=== PATIENT | female | born 1955 | race Caucasian/White ===

== ENCOUNTER 2017-03-23 14:43 | Inpatient (IN) | payer OTHER ==
[~2017-03-23] VITALS: Ht 147.3 cm; Wt 70.9 kg
--- NOTE | 2017-03-23 15:28 | DIAGNOSTIC IMAGING REPORT ---
PROCEDURE: XR CHEST 1 VIEW INDICATION: SHORTNESS OF BREATH TECHNIQUE: Portable AP view 03:08 p.m. COMPARISON: None. FINDINGS: Moderate right basilar infiltrate. Left lung is clear. Heart and mediastinum are normal. Thorax is normal. IMPRESSION: 1. Right basilar infiltrate suggestive of pneumonia. Recommend follow-up chest x-ray in 3-4 weeks which to confirm resolution.
--- NOTE | 2017-03-23 18:40 | DIAGNOSTIC IMAGING REPORT ---
PROCEDURE: CTA THORAX WITH CONTRAST INDICATION: SHORTNESS OF BREATH TECHNIQUE: 76 ml of Isovue 370 was injected intravenously and axial images were obtained of the chest with 3D sagittal and coronal MIP reconstructions. COMPARISON: Chest x-ray Performed the same day. FINDINGS: Normal opacification of the pulmonary arterial tree without filling defect. The central pulmonary arteries are normal caliber. Thoracic aorta is normal caliber with mild aortic arch calcification. There is moderate noncalcified atherosclerotic irregularity of the distal descending and proximal abdominal aorta. The great vessels demonstrate a normal branching pattern. Heart size mildly enlarged, particularly the left atrium. No pericardial effusion. Multiple small lymph nodes in the right supraclavicular region, high paratracheal region, lower paratracheal and precarinal regions, subcarinal regions, and right hilar region diffusely. Small AP window lymph node. No left hilar adenopathy. The esophagus is normal in caliber without hiatal hernia. The thyroid gland demonstrates mild irregularity in the right lobe and of focal cystic structure in the left lobe. 8 x 5 mm solid soft tissue nodule in the anterior right upper lobe (series 5 image 41) as well as mild right upper lobe lateral bronchiectasis and interstitial scarring. Dense consolidation involving the lower aspect of the right lower lobe, and the inferolateral aspect of the right middle lobe with associated right hemithorax volume loss. There is a very small right effusion. Minor dependent left atelectasis and trace left effusion. The left lung is otherwise clear. Small airways in the right lower lobe are still patent but moderately diminutive through the consolidation. No endobronchial nodule. The osseous structures are intact. The images obtained of the upper abdomen demonstrate multiple cortical cysts in each kidney and moderate retained stool in the colon. IMPRESSION: 1. No pulmonary embolus. 2. Fairly extensive right lower lobe and right middle lobe consolidations. Differential diagnosis includes infectious pneumonia, postobstructive pneumonia, less likely aspiration. Neoplasm is not excluded. Follow-up chest x-ray following treatment in 3-[address] may be required if findings persist. 3. There is fairly extensive reactive adenopathy from the hilar and subcarinal regions to the supraclavicular region. 4. Mild cardiomegaly. 5. 8 mm anterior right upper lobe lung nodule, possibly post infectious. Follow-up chest CT in 3 months recommended. 6. Discussed with Dr. Durant in the emergency room.
--- NOTE | 2017-03-23 18:58 | ED ORDER SUMMARY ---
..... Patient: TOMAS MONTES DE OCA OrderSheet [facility] VisitID: [id number] [address] [place] [address] 62y, F Registration Date/Time: 03/23/2017 ORDER SHEET Weight: 68.0 kg (stated) Allergies: No Known Drug Allergy GENERAL ORDERS: Chest 1V Urgent (14:50 03/23/2017 Kelly YUSUF) (Ack 15:30 Melissa) (15:51 SRoberts R.N.) (15:53 MCampbell) Waiter/Waitress Captain (Continuous) (14:55 03/23/2017 Kelly YUSUF) (15:29 SRoberts R.N.) CBC w Diff Urgent (14:55 03/23/2017 Kelly YUSUF) (Ack 15:30 Melissa) (15:51 SRoberts R.N.) CMP Urgent (14:55 03/23/2017 Kelly YUSUF) (Ack 15:30 Melissa) (15:51 SRoberts R.N.) UA-Culture if indicated Urgent (14:55 03/23/2017 Kelly YUSUF) (Ack 15:30 Melissa) (15:51 SRoberts R.N.) PT with INR Urgent (14:55 03/23/2017 Kelly YUSUF) (Ack 15:30 Melissa) (15:51 SRoberts R.N.) PTT Urgent (14:55 03/23/2017 Kelly YUSUF) (Ack 15:30 Melissa) (15:51 SRoberts R.N.) D-Dimer Urgent (14:55 03/23/2017 Kelly YUSUF) (Ack 15:30 Melissa) (15:51 SRoberts R.N.) Amylase Urgent (14:55 03/23/2017 Kelly YUSUF) (Ack 15:30 Melissa) (15:51 SRoberts R.N.) Lipase Urgent (14:55 03/23/2017 Kelly YUSUF) (Ack 15:30 Melissa) (15:51 SRoberts R.N.) CPK Urgent (14:55 03/23/2017 Kelly YUSUF) (Ack 15:30 Melissa) (15:51 SRoberts R.N.) Troponin-I Urgent (14:55 03/23/2017 Kelly YUSUF) (Ack 15:30 Melissa) (15:51 SRoberts R.N.) PCT (Procalcitonin) Urgent (14:55 03/23/2017 Kelly YUSUF) (Ack 15:30 Melissa) (15:51 SRoberts R.N.) BNP Urgent (14:55 03/23/2017 Kelly YUSUF) (Ack 15:30 Melissa) (15:51 SRoberts R.N.) Oxygen (2 L/min) (NC) (14:55 03/23/2017 Kelly YUSUF) (15:29 SRoberts R.N.) Pulse oximeter (14:55 03/23/2017 Kelly YUSUF) (15:29 Sulma R.N.) EKG - ER Stat (14:55 03/23/2017 Kelly YUSUF) (15:30 Melissa) Old Records ([place]) (15:53 03/23/2017 Kelly YUSUF) (16:10 Melissa) CTA Thorax w Cont (No) (see report) (Dr. Rowell aware of BUN / Cr) Urgent (17:09 03/23/2017 Kelly YUSUF) (Ack 18:11 Melissa) (18:47 SRoberts R.N.) Blood Culture (No) (N/A) Urgent (18:40 03/23/2017 Kelly YUSUF) (Ack 18:48 Melissa) (20:53 SRoberts R.N.) MEDICATION ORDERS: DuoNeb Neb Tx 1 unit dose (NOW) (15:51 03/23/2017 Kelly YUSUF) (16:34 Cjglmarie) IV FLUIDS: IV Saline Lock (14:55 03/23/2017 Kelly YUSUF) (Ack 15:29 SRoberts R.N.) (15:51 SRoberts R.N.) Solu-MEDROL IV 125 mg (NOW) (15:51 03/23/2017 Kelly YUSUF) (16:05 SRoberts R.N.) IV NS with Normal Saline 1 Liter: initial bolus none -, then 1000 mL/hr for X1 (NOW) (15:58 03/23/2017 Sulma R.N. verbal order read back to Kelly YUSUF) (16:05 Sulma R.N.) Ceftriaxone IV 2 gm/50mL (NOW) (18:42 03/23/2017 Kelly YUSUF) (19:11 Sulma R.N.) Zithromax IV 500 mg/250 mL (NOW) (18:42 03/23/2017 Kelly YUSUF) (20:20 Sulma R.N.) Clindamycin IV 900 mg/50mL (NOW) (18:43 03/23/2017 Kelly YUSUF) (19:52 Sulma R.N.) ORDER SHEET NOTES: [Electronically signed by Juan Durant MD (20:40 03/23/2017)] [Electronically signed by Fiordaliza Shea R.N. (20:53 03/23/2017)] [Electronically locked/signed by Fiordaliaz Shea R.N. (20:53 03/23/2017)]
--- NOTE | 2017-03-23 18:58 | ED NURSING NOTES ---
Clinical Report - Nurses [place] [address] [place] [address] 03/23/2017 14:48 Patient: TOMAS MONTES DE OCA TRIAGE Triage time 15:03. Acuity: LEVEL 3. Chief Complaint: SHORTNESS OF BREATH and DIFFICULTY BREATHING and COUGH and BACK PAIN (Rt side of the chest pain, Hx of pneumonia, inpatient [facility].). Alert. No acute distress. SEPSIS SCREEN: Sepsis Screen: negative. Negative (no infection suspected/documented). SULLY COMA SCORE: Sully Coma Scale: 15- eyes open spontaneously (4); best verbal response- oriented x 4 (5); best motor response- obeys commands (6). --15:21 Fiordaliza Shea R.N. 15:03 03/23/17. BP: 147/102. HR: 94. RR: 22. O2 saturation: 94% on room air. Temp: 98.7 F. --15:21 Fiordaliza Shea R.N. 15:03 03/23/17. BP: 147/102. HR: 94. RR: 22. O2 saturation: 94% on room air. Temp: 98.7 F. --15:21 Fiordaliza Shea R.N. Weight: 68 kg stated. Height/Length: 59 inches Per Patient. BMI: 30.3. --15:02 Fiordaliza Shea R.N. Medications Zofran Oral 4 mg, PRN. --15:06 Fiordaliza Shea R.N. Imitrex 1 tab at onset o lozano and 1 in 2 hrs prn. . --15:07 Fiordaliza Shea R.N. TiZANidine HCl Oral 8mg a day . --15:08 Fiordaliza Shea R.N. Verapamil HCl Oral SR 180 mg, at bedtime. --15:08 Fiordaliza Shea R.N. FLUoxetine HCl Oral 40 mg, daily. --15:09 Fiordaliza Shea R.N. AmLODIPine Besylate Oral 10 mg, daily. --15:10 Fiordaliza Shea R.N. Carvedilol 6.25mg BID. --15:12 Fiordaliza Shea R.N. Doxazosin Mesylate Oral (Tablet 1 mg) 1 tablet, hs . --15:16 Fiordaliza Shea R.N. Rosuvastatin Calcium Oral 40 mg, at bedtime. --15:16 Fiordaliza Shea R.N. Allergies No Known Drug Allergy. --15:17 Fiordaliza Shea R.N. Medication/allergy information source: the patient. --15:21 Fiordaliza Shea R.N. History Arrived by private vehicle. Historian: patient and family. Accompanied by family. Primary physician ([facility]). The patient has had a cough and back pain. Treatment SCHOOL NURSE: None. PAST MEDICAL HX: Immunizations: status is unknown. The patient has had a hysterectomy. SOCIAL HX: Smoker- current status unknown. No alcohol use or drug use. FALL RISK ASSESSMENT: Fall risk assessment completed. No fall risk identified. NUTRITIONAL RISK ASSESSMENT: The nutritional risk assessment revealed no deficiencies. FUNCTIONAL ASSESSMENT: Functional assessment: no impairments noted. LEARNING NEEDS ASSESSMENT: The learning needs assessment revealed no barriers. SKIN INTEGRITY ASSESSMENT: Skin integrity risk assessment completed. No skin integrity risk identified. --15:21 Fiordaliza Shea R.N. PROBLEMS: Pneumonia. Heart Disease. Back Pain. --15:20 Fiordaliza Shea R.N. ADDITIONAL SURGERIES: Appendectomy. . Hysterectomy. Tonsillectomy. --15:20 Fiordaliza Shea R.N. Interventions ID band on patient. To room. --15:21 Fiordaliza Shea R.N. PHYSICAL ASSESSMENT To room via wheelchair. Patient gowned. GENERAL / NEURO / PSYCH: Alert. Oriented X 4. Appears in no acute distress. Appears anxious. HEENT: Mucous membranes are pink. RESPIRATORY: Moderate respiratory distress. The patient can speak in full sentences. CVS: Capillary refill less than 2 seconds. GI / : Abdomen nontender. SKIN: Skin is warm and dry. Normal skin turgor. --15:22 Fiordaliza Shea R.N. NURSING PROGRESS NOTES ( Chest xray done in the room.). --15:17 Fiordaliza Shea R.N. Pulse oximeter and NIBP monitor placed on patient; monitor alarms on. Patient gowned. Head of bed elevated. Two patient identifiers checked. Call light placed in reach. Side rails up x 2. Patient placed in chair. Brakes of chair on. Patient ready for evaluation. --15:22 Fiordaliza Shea R.N. 15:22 03/23/17. BP: 118/76. HR: 83. RR: 20. O2 saturation: 94% on room air. Pain level now: 08/28. Additional comments: last pain med at 10am. --15:23 Fiordaliza Shea R.N. 15:30 03/23/2017 Site #1 started via IV in the left wrist with an 22g angiocath, with aseptic technique and good blood return; one attempt. Blood drawn: rainbow set. Labeled in the presence of the patient and sent to the lab. Saline lock flushed with 10 mL saline. --15:51 Fiordaliza Shea R.N. 16:05 03/23/2017 SOLU-MEDROL (MethylPREDNISolone Sodium Succ) IVP 125 mg given over 1 minute(s) via site #1. Allergies verified and confirmed 5 rights. IV patency established. IV site checked: no pain, redness, or swelling. IV flushed thoroughly pre- and post-medication administration. IVP given by RN. --16:05 Fiordaliza Shea R.N. 16:03/23/2017 Started bag #1 1000 mL IV Fluids IV NS (Saline); at 1000 mL/hr via site #1. Allergies verified and confirmed 5 rights. IV patency established. IV site checked: no pain, redness, or swelling. IV flushed thoroughly pre- and post-medication administration. --16:05 Fiordaliza Shea R.N. 16:25 03/23/2017 Site #2 started via IV in the right forearm with an 20g angiocath, with aseptic technique and good blood return; two attempts. Saline lock flushed with 10 mL saline (for CT dye). --16:25 Yudith Juárez R.N. 16:34 03/23/2017 Duoneb (Ipratropium-Albuterol) Neb TX Nebulizer 1 unit dose given. Given by the respiratory therapist. Allergies verified and confirmed 5 rights. Ronald Lerma --16:34 Ronald Lerma 16:35 03/23/17. BP: 122/87 taken on the left arm, while sitting. HR: 84. RR: 18. O2 saturation: 96% on nasal cannula at 2 liters/minute. --16:46 Fiordaliza Shea R.N. ( RT did neb treatment in the room..). --16:46 Fiordaliza Shea R.N. EKG time: (15:10). EKG was performed by a tech and shown to the ED physician. --16:59 Aleisha Woodard 17:45 03/23/2017 Site #3 started via IV in the left antecubital space with an 18g angiocath; two attempts. Saline lock flushed with 10 mL saline. --17:45 Mimi Wall R.N. Patient returned from CT by stretcher with tech. --18:13 Fiordaliza Shea R.N. 18:15 03/23/17. BP: 122/69. HR: 74. RR: 18. O2 saturation: 96% on nasal cannula at 2 liters/minute. 17:34 03/23/17. BP: 136/77. HR: 87. RR: 18. O2 saturation: 97% on nasal cannula at 2 liters/minute. --18:16 Fiordaliza Shea R.N. 19:05. ( 2nd set blood cultures done. Antibiotics started.). --19:10 Fiordaliza Shea R.N. 17:30 03/23/2017 IV Fluids IV NS Discontinued: bag #1 infused. Total amount infused: 1000 mL. IV patency established. IV site checked: no pain, redness, or swelling. IV flushed thoroughly. --19:11 Fiordaliza Shea R.N. 19:11 03/23/2017 Started 2 gm of Ceftriaxone IVPB in bag #1 50 mL; at 150 mL/hr over 20 minute(s) via site #1 --19:11 Fiordaliza Shea R.N. 19:52 03/23/2017 Started 900 mg of Clindamycin IVPB in bag #1 50 mL; at 150 mL/hr over 20 minute(s) via site #1 via IV pump. Allergies verified and confirmed 5 rights. IV patency established. IV site checked: no pain, redness, or swelling. IV flushed thoroughly pre- and post-medication administration. --19:52 Fiordaliza Shea R.N. 19:52 03/23/2017 Ceftriaxone IVPB Discontinued: bag #1 infused. Total amount infused: 50 mL. IV patency established. IV site checked: no pain, redness, or swelling. IV flushed thoroughly. --19:52 Fiordaliza Shea R.N. ( Dr Perez at the bedside.). --19:53 Fiordaliza Shea R.N. 20:19 03/23/2017 Clindamycin IVPB Discontinued: bag #1 infused. Total amount infused: 50 mL. IV patency established. IV site checked: no pain, redness, or swelling. IV flushed thoroughly. --20:19 Fiordaliza Shea R.N. 20:20 03/23/2017 Started 500 mg of Zithromax (Azithromycin) IVPB in bag #1 250 mL; at 255 mL/hr over 1 hour(s) via site #1 via IV pump. Allergies verified and confirmed 5 rights. IV patency established. IV site checked: no pain, redness, or swelling. IV flushed thoroughly pre- and post-medication administration. --20:20 Fiordaliza Shea R.N. 20:20 03/23/2017 Site #[address] upon admission; patent, no pain and no signs of infiltration. Flushed with 10 mL saline. --20:20 Fiordaliza Shea R.N. 20:21 03/23/2017 Site #[address] upon admission; patent and no pain. Good blood return present. Flushed with 10 mL saline. --20:21 Fiordaliza Shea R.N. 20:21 03/23/2017 Site #[address] upon admission; patent and no pain. Good blood return present; flushes easily. --20:21 Fiordaliza Shea R.N. <<STRICKEN ENTRY-- 20:25 03/23/2017 Started 250 mg of Zithromax (Azithromycin) IVPB in bag #1 255 mL; at 255 mL/hr over 1 hour(s) via site #1 via IV pump. IV patency established. IV site checked: no pain, redness, or swelling. IV flushed thoroughly pre- and post-medication administration. --20:51 Fiordaliza Shea R.N. --END STRIKE>> Other. --20:52 Fiordaliza Shea R.N. DISPOSITION / DISCHARGE Patient's personal items include: shirt, pants, undergarments, coat, socks, shoes, purse and cell phone; items were placed in belongings bag and transported with the patient. Collection of belongings was witnessed by 1 nurse. --20:01 Fiordaliza Shea R.N. Transported via stretcher by [facility] with IV and O2. Report was given to a nurse via a phone call. Report included patient's care, treatment, medications, reviewed medication reconcilliation, and condition (including any recent changes or anticipated changes). All questions were answered. Report was acknowledged and care was transferred. (JOSI Tovar). --20:30 Fiordaliza Shea R.N. 20:30 03/23/17. BP: 126/78. HR: 98. RR: 18. O2 saturation: 98% on nasal cannula at 2 liters/minute. Temp: deferred. Pain level now: 07/29. 18:15 03/23/17. BP: 122/69. HR: 74. RR: 18. O2 saturation: 96% on nasal cannula at 2 liters/minute. 17:34 03/23/17. BP: 136/77. HR: 87. RR: 18. O2 saturation: 97% on nasal cannula at 2 liters/minute. 16:35 03/23/17. BP: 122/87 taken on the left arm, while sitting. HR: 84. RR: 18. O2 saturation: 96% on nasal cannula at 2 liters/minute. 15:22 03/23/17. BP: 118/76. HR: 83. RR: 20. O2 saturation: 94% on room air. Pain level now: 08/28. Additional comments: last pain med at 10am. 15:03 03/23/17. BP: 147/102. HR: 94. RR: 22. O2 saturation: 94% on room air. Temp: 98.7 F. --20:32 Fiordaliza Shea R.N. Departure time: 2044. --20:49 Fiordaliza Shea R.N. Locked/Released at 03/23/2017 20:53 by Fiordaliza Shea R.N.
--- NOTE | 2017-03-23 18:58 | ED CLINICAL REPORT ---
Clinical Report - Physicians/Mid Levels [facility] [address] [place] [address] 03/23/2017 14:48 Patient: TOMAS MONTES DE OCA Time Seen: 14:50. Arrived- By private vehicle. Historian- patient. HISTORY OF PRESENT ILLNESS Chief Complaint: DYSPNEA. This started about 4 months ago and is still present. It was gradual in onset and has been intermittent and waxing/waning. The dyspnea is severe. The patient has had a cough, fever, wheezing, chills and dyspnea on exertion. No sputum production, sweating episodes, calf pain or foot swelling. She complains of severe, aching, sharp, pleuritic right-sided chest pain, currently severe, described as radiating to the back. (She reports that in November she was admitted at [facility] with pneumonia. She was treated there with an uncertain course of antibiotics and said that she improved over symptoms never completely resolved. She said she followed up with her primary care doctor and was given another outpatient course of antibiotics. However, she's had persistence of cough and over the past week or 2 has become progressively more short of breath.). Similar symptoms previously: Recent medical care: Seen for similar symptoms. Evaluation/treatment: x-rays. Diagnosis: pneumonia. ( She was treated in November at [facility] for pneumonia. She wasn't feeling better 1 snd 1/2 weeks later so her PCP treated her for pneumonia again and it improved but didn't entirely resolve. Then 2 weeks ago the cough became worse again and has progressively worsened). REVIEW OF SYSTEMS The patient has had fever, chills, fatigue, a cough and difficulty breathing. No sweats, calf pain, pedal edema, palpitations or abdominal pain. No black stools, bloody stools, constipation, diarrhea or nausea. No vomiting. The patient has had urinary problems (she has noticed blood in her urine for the last few days that is improving today). She underwent a cardiac workup including a stress test at [facility] in November. She says that these studies all "went well.". All systems otherwise negative, except as recorded above. PAST HISTORY PCP - [facility] - [place]. Problems: Back Pain. Heart Disease. Pneumonia. Additional Surgeries: Appendectomy. . Hysterectomy. Tonsillectomy. Medications: Rosuvastatin Calcium Oral 40 mg, at bedtime. Doxazosin Mesylate Oral (Tablet 1 mg) 1 tablet, hs . Carvedilol 6.25mg BID. AmLODIPine Besylate Oral 10 mg, daily. FLUoxetine HCl Oral 40 mg, daily. Verapamil HCl Oral SR 180 mg, at bedtime. TiZANidine HCl Oral 8mg a day . Imitrex 1 tab at onset o lozano and 1 in 2 hrs prn. . Zofran Oral 4 mg, PRN. Allergies: No Known Drug Allergy. SOCIAL HISTORY Smoker- current status unknown. No alcohol use or drug use. Residence: [place] she lives with a family member. FAMILY HISTORY Hypertension in first-degree relative (mother); premature onset heart disease in first-degree relative (father); cancer in first-degree relative (sibling). ADDITIONAL NOTES The nursing notes have been reviewed. PHYSICAL EXAM Vital Signs: 03/23/2017 15:03 BP: 147/102. HR: 94. RR: 22. O2 saturation: 94%. Temp: 98.7 F. Appearance: Alert. Eyes: Pupils equal, round and reactive to light. ENT: Nose normal. Neck: Normal inspection. No jugular venous distention. CVS: Normal heart rate and rhythm. Heart sounds normal. Respiratory: Accessory muscle use. Prolonged expirations. Decreased air movement. Moderate rhonchi present in the right lung base posteriorly. Abdomen: Soft and nontender. No organomegaly. Back: Normal inspection. No CVA tenderness. Skin: Skin warm and dry. Normal skin color. Normal skin turgor. Extremities: Extremities exhibit normal ROM. No calf tenderness. No lower extremity edema. LABS, X-RAYS, AND EKG EKG: Rate: 91. nonspecific intraventricular block, cannot rule outanterior infarct, age undetermined. Prior EKG unavailable. The study has been independently viewed by me. Chest X-ray: (IMPRESSION: 1. Right basilar infiltrate suggestive of pneumonia. Recommend follow-up chest x-ray in 3-4 weeks which to confirm resolution.). The X-rays were interpreted by the radiologist and contemporaneously by me. Chest CT: (IMPRESSION: 1. No pulmonary embolus. 2. Fairly extensive right lower lobe and right middle lobe consolidations. Differential diagnosis includes infectious pneumonia, postobstructive pneumonia, less likely aspiration. Neoplasm is not excluded. Follow-up chest x-ray following treatment in 3-[address] may be required if findings persist. 3. There is fairly extensive reactive adenopathy from the hilar and subcarinal regions to the supraclavicular region. 4. Mild cardiomegaly. 5. 8 mm anterior right upper lobe lung nodule, possibly post infectious. Follow-up chest CT in 3 months recommended.). The study was interpreted contemporaneously by me and discussed with the radiologist. Laboratory Tests: UA-Culture if indicated: (ÁNGELA: 03/23/2017 15:30) ( [facility] 03/23/2017 16:21) Final results Test Result Flag Units (Reference) URINE COLOR LATOYA URINE APPEARANCE CLOUDY URINE GLUCOSE NEGATIVE (NEGATIVE) URINE BILIRUBIN 1+ (NEGATIVE) URINE KETONE NEGATIVE (NEGATIVE) URINE SPECIFIC GRAVITY 1.020 (1.010-1.030) URINE PH 6.0 (5.0-8.0) URINE PROTEIN 3+ (NEGATIVE) URINE UROBILINOGEN 1.0 EU/dL (0.2-1.0) URINE NITRITE NEGATIVE (NEGATIVE) URINE BLOOD 3+ (NEGATIVE) URINE LEUK ESTERASE POSITIVE (NEGATIVE) URINE RBC 1-3 rbc/hpf (0-1) URINE WBC 15-25 wbc/hpf (0-1) URINE EPITHELIAL CELLS 5-10 EPI/hpf (0-5) URINE BACTERIA MODERATE (2+ TO 3+) (NONE SEEN) URINE COMMENT CULTURE INDICATED 1+ FATTY CASTSURINE CULTURES ARE SET-UP BASED ON THE FOLLOWING CRITERIA:POSITIVE NITRITEPOSITIVE LEUKOCYTE ESTERASEGREATER THAN 10 WHITE BLOOD CELLSMODERATE (2+) OR GREATER BACTERIA CBC w Diff: (ÁNGELA: 03/23/2017 15:30) ( [facility] 03/23/2017 16:27) Final results Test Result Flag Units (Reference) WHITE BLOOD COUNT 14.3 H K/uL (4.5-11.5) RED BLOOD COUNT 3.44 L M/uL (4.00-5.20) HEMOGLOBIN 10.3 L gm/dL (12.0-16.0) HEMATOCRIT 30.0 L % (36.0-46.0) MEAN CELL VOLUME 87 fL (80-100) MEAN CORPUSCULAR HGB 30 pg (26-34) MEAN CORPUSCULAR HGB CONC 34 g/dL (31-37) RED CELL DISTRIBUTION WIDTH 13.7 % (11.6-14.8) PLATELET COUNT 280 K/uL (150-400) NEUTROPHIL % 77.8 H % (50-75) LYMPH % 10.9 L % (25-40) MONO % 10.4 % (3-14) EOSINOPHIL % 0.8 % (0-4) BASOPHIL % 0.1 % (0-2) PT with INR: (ÁNGELA: 03/23/2017 15:30) ( MsgRcvd 03/23/2017 17:04) Final results Test Result Flag Units (Reference) INR 1.1 (0.8-1.2) Low Intensity Therapy: INR 1.5-2.0 PT range 18.5-23.1Mod.Intensity Therapy: INR 2.0-3.0 PT range 23.1-31.5High Intensity Therapy: INR 2.5-3.5 PT range 27.4-35.5High Intensity Therapy 2: INR 3.0-4.0 PT range 31.5-39.3 APTT 46 H SECONDS (24-34) D-DIMER QUANTITATIVE 7.95 *H ug/mLFEU (0.27-0.52) CRITICAL RESULTS CALLEDCalled to JOSI CARMEN, 03/23/17 1704Were 2 patient identifiers used? YWas the result read back? YThe primary value of this quantitative assay relates toits negative predictive value (i.e. exclusion) of pulmonaryembolism/deep vein thrombosis/DIC.Elevated levels of d-dimer may also occur with:, age, cancer, inflammation, liver disease,post-op, infection, hematoma, coronary disease, peripheralarteriopathy, bleeding disorders and thrombolytic treatment.Results should be correlated with other clinical andradiological data.Testing Methodology: Latex Immunoassay BNP: (ÁNGELA: 03/23/2017 15:30) ( MsgRcvd 03/23/2017 16:39) Final results Test Result Flag Units (Reference) B-TYPE NATRIURETIC PEPTIDE 178 H pg/ml (5-100) [id number]: (ÁNGELA: 03/23/2017 15:30) ( MsgRcvd 03/23/2017 16:35) Final results Test Result Flag Units (Reference) PROCALCITONIN 1.6 H ng/mL (0-0.5) PCT Concentration: Interpretation : Risk/option for action PCT <=0.5 ng/mL : Systemic : Low risk forinfection(sepsis): progression to severeis not likely. : systemic infection.Local bacterial : CAUTION-PCT levelsinfection is : below 0.5 ng/mL do notpossible. : exclude an infection,because localizedinfections (withoutsystemic signs) may beassociated with suchlow levels. If PCT ismeasured very earlyafter a bacterialchallenge (usually <6hours), these valuesmay still be low. Inthis case PCT shouldbe re-assessed 6-24hours later. PCT >0.5 and : Systemic infection: Moderate risk for<= 2 ng/mL : (sepsis) is : progression to severepossible, but : systemic infection.other conditions : The patient should beare known to : closely monitoredelevate PCT. : both clinically andby re-assessing PCTwithin 6-24 hours. PCT > 2 ng/mL : Systemic infection: High risk for(sepsis) is likely: progression to severeunless other : systemic infection.causes are known. : PCT >= 10 ng/mL : Important systemic: High likelihood ofinflammatory : severe sepsis orresponse, almost : septic shock.exclusively due to:severe bacterial :sepsis or septic :shock. : CMP: (ÁNGELA: 03/23/2017 15:30) ( MsgRcvd 03/23/2017 16:14) Final results Test Result Flag Units (Reference) GLUCOSE 107 mg/dL (70-110) BUN 22 H mg/dL (7-18) CREATININE 1.6 H mg/dL (0.6-1.3) Estimated GFR 34.60 mL/min Estimated GFR- 41.94 mL/min Note: Persistent reduction over 3 months in eGFR<60 mL/min/1.73 m2 defines CKD. Patients with eGFR values>=60 mL/min/1.73 m2 may also have CKD if evidence ofpersistent proteinuria. Additional information may be foundat www.kidney.org. SODIUM 134 L mmol/L (136-145) POTASSIUM 3.8 mmol/L (3.5-5.1) CHLORIDE 95 L mmol/L (98-107) CARBON DIOXIDE 23 mmol/L (21-32) CALCIUM 9.2 mg/dL (8.5-10.1) TOTAL PROTEIN 8.1 g/dL (6.4-8.2) ALBUMIN 2.7 L g/dL (3.3-5.0) BILIRUBIN, TOTAL 0.9 mg/dL (0.0-1.0) ALKALINE PHOSPHATASE 433 H U/L (46-116) AST (SGOT) 66 H U/L (15-37) ALT (SGPT) 37 U/L (12-78) LIPASE 99 U/L (73-393) AMYLASE 37 U/L (25-115) CPK 81 U/L (24-260) TROPONIN I <0.05 L ng/mL (0.00-1.5) TROPONIN REFERENCE RANGE:<0.1 NEGATIVE0.1-1.5 INDETERMINANT>1.5 POSITIVE . PROGRESS AND PROCEDURES Course of Care: Patient is stable. Discussed case with hospitalist, (Ana - he saw the patient in the ER). Reviewed test results and need for additional work-up. Agreed upon treatment plan, need for patient follow-up and decision to admit. Consult obtained from surgery. Dr. Patterson. Case discussed. Phone consult only. Will see patient in the hospital. Patient/family counseled. Old medical records reviewed. (from [facility]). Disposition: Admitted. CLINICAL IMPRESSION Pulmonary nodule. Pneumonia. Renal insufficiency. Urinary tract infection. (Electronically signed by Juan Durant MD 03/23/2017 20:40)
--- NOTE | 2017-03-23 18:58 | ED ORDER SUMMARY ---
..... Patient: TOMAS MONTES DE OCA OrderSheet [facility] VisitID: [id number] [place] [address] 62y, F Registration Date/Time: 03/23/2017 ORDER SHEET Weight: 68.0 kg (stated) Allergies: No Known Drug Allergy GENERAL ORDERS: Chest 1V Urgent (14:50 03/23/2017 Kelly YUSUF) (Ack 15:30 Melissa) (15:51 SRoberts R.N.) (15:53 MCampbell) Business Insurance Agent (Continuous) (14:55 03/23/2017 Kelly YUSUF) (15:29 SRoberts R.N.) CBC w Diff Urgent (14:55 03/23/2017 Kelly YUSUF) (Ack 15:30 Melissa) (15:51 SRoberts R.N.) CMP Urgent (14:55 03/23/2017 Kelly YUSUF) (Ack 15:30 Melissa) (15:51 SRoberts R.N.) UA-Culture if indicated Urgent (14:55 03/23/2017 Kelly YUSUF) (Ack 15:30 Melissa) (15:51 SRoberts R.N.) PT with INR Urgent (14:55 03/23/2017 Kelly YUSUF) (Ack 15:30 Melissa) (15:51 SRoberts R.N.) PTT Urgent (14:55 03/23/2017 Kelly YUSUF) (Ack 15:30 Melissa) (15:51 SRoberts R.N.) D-Dimer Urgent (14:55 03/23/2017 Kelly YUSUF) (Ack 15:30 Melissa) (15:51 SRoberts R.N.) Amylase Urgent (14:55 03/23/2017 Kelly YUSUF) (Ack 15:30 Melissa) (15:51 SRoberts R.N.) Lipase Urgent (14:55 03/23/2017 Kelly YUSUF) (Ack 15:30 Melissa) (15:51 SRoberts R.N.) CPK Urgent (14:55 03/23/2017 Kelly YUSUF) (Ack 15:30 Melissa) (15:51 SRoberts R.N.) Troponin-I Urgent (14:55 03/23/2017 Kelly YUSUF) (Ack 15:30 Melissa) (15:51 SRoberts R.N.) PCT (Procalcitonin) Urgent (14:55 03/23/2017 Kelly YUSUF) (Ack 15:30 Melissa) (15:51 SRoberts R.N.) BNP Urgent (14:55 03/23/2017 Kelly YUSUF) (Ack 15:30 Melissa) (15:51 SRoberts R.N.) Oxygen (2 L/min) (NC) (14:55 03/23/2017 Kelly YUSUF) (15:29 SRoberts R.N.) Pulse oximeter (14:55 03/23/2017 Kelly YUSUF) (15:29 Sulma R.N.) EKG - ER Stat (14:55 03/23/2017 Kelly YUSUF) (15:30 Melissa) Old Records ([place]) (15:53 03/23/2017 Kelly YUSUF) (16:10 Melissa) CTA Thorax w Cont (No) (see report) (Dr. Rowell aware of BUN / Cr) Urgent (17:09 03/23/2017 Kelly YUSUF) (Ack 18:11 Melissa) (18:47 SRoberts R.N.) Blood Culture (No) (N/A) Urgent (18:40 03/23/2017 Kelly YUSUF) (Ack 18:48 Melissa) (20:53 SRoberts R.N.) MEDICATION ORDERS: DuoNeb Neb Tx 1 unit dose (NOW) (15:51 03/23/2017 Kelly YUSUF) (16:34 Cjglmarie) IV FLUIDS: IV Saline Lock (14:55 03/23/2017 Kelly YUSUF) (Ack 15:29 SRoberts R.N.) (15:51 SRoberts R.N.) Solu-MEDROL IV 125 mg (NOW) (15:51 03/23/2017 Kelly YUSUF) (16:05 SRoberts R.N.) IV NS with Normal Saline 1 Liter: initial bolus none -, then 1000 mL/hr for X1 (NOW) (15:58 03/23/2017 Sulma R.N. verbal order read back to Kelly YUSUF) (16:05 Sulma R.N.) Ceftriaxone IV 2 gm/50mL (NOW) (18:42 03/23/2017 Kelly YUSUF) (19:11 Sulma R.N.) Zithromax IV 500 mg/250 mL (NOW) (18:42 03/23/2017 Kelly YUSUF) (20:20 Sulma R.N.) Clindamycin IV 900 mg/50mL (NOW) (18:43 03/23/2017 Kelly YUSUF) (19:52 Sulma R.N.) ORDER SHEET NOTES: [Electronically signed by Juan Durant MD (20:40 03/23/2017)] [Electronically signed by Fiordaliza Shea R.N. (20:53 03/23/2017)] [Electronically locked/signed by Fiordaliza Shea R.N. (20:53 03/23/2017)]
--- NOTE | 2017-03-23 20:07 | Progress Note ---
Subjective General Admission History and Physical Examination Patient Name: Connie Andrade Admission Date: March 23, 2017 Primary Care Provider: Dr. Jerry Attending Physician: Antwan Salinas M.D. Admitting Physician: Mikey Perez M.D. Code Status: NO CODE Room: [facility] Status: Inpatient, ACU SUBJECTIVE Historian: Patient Reliability: Good Chief Complaint: Cough, shortness of breath History of Present Illness: The patient is a 62-year-old white female with a significant past medical history of recurrent pneumonia, hypercholesterolemia, hypertension, chronic pain , fibromyalgia, depression, migraine headache, polymyositis, who presented to [facility] emergency department on the day of admission with the above chief complaint. [facility] ER evaluation was consistent with recurrent right lower lobe pneumonia. Secondary to the above, the patient was admitted by Mikey Perez M.D. for further evaluation and treatment. The history of present illness began approximately 5 months prior to admission when the patient was admitted at [facility] secondary to right-sided pneumonia. She was treated with antimicrobials and was discharged home with significant improvement. Her symptoms recurred approximately one month later at which time she was pretreated with antimicrobials. No follow-up chest x-ray was obtained. Her symptoms again improved only to recur at this time. She has experienced increased shortness of breath, cough which has been minimally productive without purulent sputum or blood noted. She gives a history of subjective fever but none has been measured. She has generalized weakness. Secondary to the above the patient presented to [facility] emergency department for further evaluation treatment. [facility] ER evaluation was consistent with recurrent right lower lobe/right middle lobe pneumonia with associated lymphadenopathy. Chest x-ray and CTA showed findings of pneumonia but no clear signs of pulmonary mass. Secondary to the above the patient was admitted with a diagnosis of recurrent pneumonia for further evaluation and treatment. PAST MEDICAL HISTORY Illnesses: 1. Hypertension 2. Hyperlipidemia 3. Depression 4. Chronic pain 5. Migraine headaches 6. Polymyositis Allergies: 1. No known drug allergies Medications: 1. Lisinopril 10 mg by mouth twice a day 2. Methadone 30 mg by mouth every morning, 20 mg by mouth 3 times a day 3. Coreg 6.25 mg by mouth twice a day 4. Cardura 1 mg by mouth daily at bedtime 5. Crestor 40 mg by mouth daily 6. Fluoxetine 40 mg by mouth daily 7. Norvasc 10 mg by mouth daily 8. Calan SR 180 mg by mouth daily 9. Tizanidine 4 mg by mouth twice a day 10. Zofran 1 by mouth every 4 hours when necessary for pain 11. Sumatriptan 50 mg by mouth when necessary headache Surgery: 1. Appendectomy 2. 2 3. Partial hysterectomy 4. Tonsillectomy Injuries: 1. No significant Hospitalizations: 1. For above surgery and medical problems FAMILY HISTORY Parents: 1. Father, Edwin, , 70, cardiomyopathy, 2. Mother, Cedrick, living, 86, hypertension, Parkinson's Siblings: 1. The patient has 6 siblings with history of non-Hodgkin's lymphoma, obesity, rheumatoid arthritis Children: 1. The patient has 2 children one of which is secondary to SLE. One living age 38 with diabetes mellitus Other significant family history: None SOCIAL HISTORY 1. Marital Status: 2. Presybeterian: Christianity-Druze 3. Education: 10th grade 4. Employment History: Nurse's aide, disabled secondary to back pain 5. Occupational health exposures: No significant HABITS 1. Tobacco: Cigarettes-45 pack years, currently nonsmoker 5 months 2. Drugs: None 3. Alcohol: None 4. Caffeine: None HEALTH SUPERVISION Item/Test 1. Vision screen: No recent 2. Cholesterol Profile: 2016 3. PSA: Not applicable 4. MARITAZ: Not applicable 5. FOBT: No recent 6. Blood Glucose: 2017 7. Colonoscopy: No previous 8. History and physical exam: No recent 9. Audiogram: No recent 10. Mammogram: 2016 09. Pap/pelvic exam: No recent IMMUNIZATIONS: 1. Pneumococcal: No previous 2. Influenza: No previous 3. Tetanus: No previous ADVANCED DIRECTIVES: 1. Living well: No 2. POLST: No 3. Code Status: NO CODE-DNR/DNI 4. Durable Power Senior Reactor Operator Health care: No 5. Donor card: No REVIEW OF SYSTEMS Remarkable for those things stated in the history of present illness and past medical history. Seventeen point review of system completed with the following notable findings: General: Pain, weakness Throat: Sore throat, hoarseness Respiratory: Shortness of breath, cough, pneumonia Cardiovascular: Hypertension, muscular pain with ambulation Genitourinary: Hematuria Gastrointestinal: Loss of appetite, heartburn, reflux, constipation Musculoskeletal: Muscle pain, backache Neurological: Headaches Psychological: Depression, insomnia, anxiety Physical Exam General Appearance Alert, Oriented X3, Cooperative, Mild distress HEENT Atraumatic, PERRLA, EOMI, Moist mucous membranes Lungs Normal air movement, Rales/rhonchi (R) base Neck Supple, No JVD, 2+ carotid pulse wo bruit Cardiovascular Regular rate and rhythm, Normal S1 and S2, Grade 1/6 systolic murmur Abdomen Normal bowel sounds, Soft, No tenderness, No guarding Extremities No cyanosis, No clubbing, No edema Neurological Cranial nerves intact, Strength 5/5 x4 ext's, No lateralizing signs Psych/Mental Status Mental status normal, Mood normal LAB Results Laboratory Tests 03/23 03/23 1530 1530 Chemistry B-Natriuretic Peptide (5 - 100 pg/ml) 178 Procalcitonin (0 - 0.5 ng/mL) 1.6 03/23 1530 Chemistry Plasma Sodium (136 - 145 mmol/L) 134 Plasma Potassium (3.5 - 5.1 mmol/L) 3.8 Plasma Chloride (98 - 107 mmol/L) 95 CO2 (Enzymatic) (21 - 32 mmol/L) 23 BUN (7 - 18 mg/dL) 22 Creatinine (0.6 - 1.3 mg/dL) 1.6 Est GFR ( Amer) (mL/min) 41.94 Est GFR (Non-Af Amer) (mL/min) 34.60 Glucose (70 - 110 mg/dL) 107 Plasma Calcium (8.5 - 10.1 mg/dL) 9.2 Total Bilirubin (0.0 - 1.0 mg/dL) 0.9 AST (15 - 37 U/L) 66 ALT (12 - 78 U/L) 37 Alkaline Phosphatase (46 - 116 U/L) 433 Creatine Kinase (24 - 260 U/L) 81 Troponin (0.00 - 1.5 ng/mL) <0.05 Total Protein (6.4 - 8.2 g/dL) 8.1 Albumin (3.3 - 5.0 g/dL) 2.7 Amylase (25 - 115 U/L) 37 Lipase (73 - 393 U/L) 99 Coagulation INR (0.8 - 1.2) 1.1 APTT (24 - 34 SECONDS) 46 D-Dimer, Quantitative (0.27 - 0.52 ug/mLFEU) 7.95 Hematology WBC (4.5 - 11.5 K/uL) 14.3 RBC (4.00 - 5.20 M/uL) 3.44 Hgb (12.0 - 16.0 gm/dL) 10.3 Hct (36.0 - 46.0 %) 30.0 MCV (80 - 100 fL) 87 MCH (26 - 34 pg) 30 RDW (11.6 - 14.8 %) 13.7 Neut % (Auto) (50 - 75 %) 77.8 Lymph % (Auto) (25 - 40 %) 10.9 Whitley % (Auto) (3 - 14 %) 10.4 Eos % (Auto) (0 - 4 %) 0.8 Baso % (Auto) (0 - 2 %) 0.1 Plt Count, EDTA (150 - 400 K/uL) 280 PUBS MCHC (31 - 37 g/dL) 34 Urines Urine Color LATOYA Urine Appearance CLOUDY Urine pH (5.0 - 8.0) 6.0 Ur Specific [place] (1.010 - 1.030) 1.020 Urine Protein (NEGATIVE) 3+ Urine Ketones (NEGATIVE) NEGATIVE Urine Blood (NEGATIVE) 3+ Urine Nitrite (NEGATIVE) NEGATIVE Urine Bilirubin (NEGATIVE) 1+ Urine Urobilinogen (0.2 - 1.0 EU/dL) 1.0 Ur Leukocyte Esterase (NEGATIVE) POSITIVE Urine RBC (0 - 1 rbc/hpf) 1-3 Urine WBC (0 - 1 wbc/hpf) 15-25 Ur Epithelial Cells (0 - 5 EPI/hpf) 5-10 Urine Bacteria (NONE SEEN) MODERATE (2+ TO 3+) Urine Glucose (NEGATIVE) NEGATIVE Urine Comment CULTURE INDICATED Microbiology Date/Time Procedure - Status Source Growth 03/23 1900 Blood Culture - RECD BLOOD 03/23 1617 Blood Culture - RECD BLOOD 03/23 1530 Urine Culture - RECD URINE CC Assessment and Plan Problem List 1. Pneumonia Status Acute Onset Date Unknown Plan -Patient presents with findings of right-sided pneumonia -Recurrent pneumonia right side since November 2016 -Associated lymphadenopathy -Cannot rule out endobronchial lesion, lung cancers etiology of recurrent pneumonia -Rocephin/Zithromax -Surgical consultation obtained with Dr. Patterson -Schedule bronchoscopy per Dr. Patterson 2. UTI (urinary tract infection) Plan -Patient with findings of UTI -Rocephin 1 g IV daily -Await urine C&S 3. Fibromyalgia Status Chronic Onset Date Unknown Plan -Patient with history of fibromyalgia -Treatment has been done with high dose narcotics -We'll discuss alternatives to therapy at the time of discharge. -Continue present therapy. 4. Hypertension Status Chronic Onset Date Unknown Plan -Patient with history of hypertension -Continue outpatient medical regimen -Low-salt diet 5. Hyperlipidemia Status Chronic Onset Date Unknown Plan -Patient with long-standing history of hyperlipidemia -Continue statin therapy -Check lipid profile 6. Anemia Status Acute Onset Date Unknown Plan -Patient with findings of mild anemia -H&H 10.3/30.0. MCV 87 -Check iron studies, B12, folate -Monitor 7. Alkaline phosphatase elevation Status Acute Onset Date Unknown Plan -Patient with findings of elevated alkaline phosphatase -Mild elevation of AST-66 -Check GGT -Consider abdominal ultrasound if GGT elevated versus skeletal survey/bone scan Current status: Fair, unstable Anticipated discharge date: [discharge date] Anticipated discharge placement: [Home] Patient care time: Time spent in chart review, patient interview, physical exam, CPOE, and care documentation: 70 minutes Visit to patient today: 2 Complexity of care: High Initial patient evaluation: Emergency department DVT prophylaxis: Heparin 5000 units subcutaneous every 8 hours E&M Codes Admission: Inpt-High/60770
--- NOTE | 2017-03-23 20:53 | ED MAR SUMMARY ---
..... Medication Administration Record [facility] [address] [place] [place] [address] Patient: TOMAS MONTES DE OCA Visit ID: [id number] 62y, F Weight: 68.0 kg Height/Length: 59 in BMI: 30.3 ALLERGIES: No Known Drug Allergy Given 16:05 03/23/2017 Fiordaliza Shea R.N. Medication Administered: SOLU-MEDROL [IVP] (METHYLPREDNISOLONE SODIUM SUCC), Dose: 125 mg IVP over 1 minute(s), Site: #1 left wrist. Medication Ordered: Solu-MEDROL IV 125 mg (NOW). Start 16:05 03/23/2017 Fiordaliza Shea R.N., Stop 17:30 03/23/2017 Fiordaliza Shea R.N. Medication Administered: IV NS (SALINE), Dose: IV Fluids, Rate: 1000 mL/hr, Dispensed: 1000 mL bag, Site: #1 left wrist. Medication Ordered: IV NS with Normal Saline 1 Liter: initial bolus none -, then 1000 mL/hr for X1 (NOW). Given 16:34 03/23/2017 Ronald Lerma, Medication Administered: DUONEB [NEB TX] (IPRATROPIUM-ALBUTEROL), Dose: 1 unit dose Nebulizer Neb TX. Medication Ordered: DuoNeb Neb Tx 1 unit dose (NOW). Start 19:11 03/23/2017 Fiordaliza Shea R.N., Stop 19:52 03/23/2017 Fiordaliza Shea R.N. Medication Administered: CEFTRIAXONE [IVPB], Dose: 2 gm IVPB over 20 minute(s), Rate: 150 mL/hr, Dispensed: 50 mL bag, Site: #1 left wrist. Medication Ordered: Ceftriaxone IV 2 gm/50mL (NOW). Start 19:52 03/23/2017 Fiordaliza Shea R.N., Stop 20:19 03/23/2017 Fiordaliza Shea R.N. Medication Administered: CLINDAMYCIN [IVPB], Dose: 900 mg IVPB over 20 minute(s), Rate: 150 mL/hr, Dispensed: 50 mL bag, Site: #1 left wrist. Medication Ordered: Clindamycin IV 900 mg/50mL (NOW). Start 20:20 03/23/2017 Fiordaliaz Shea R.N. Medication Administered: ZITHROMAX [IVPB] (AZITHROMYCIN), Dose: 500 mg IVPB over 1 hour(s), Rate: 255 mL/hr, Dispensed: 250 mL bag, Site: #1 left wrist. Medication Ordered: Zithromax IV 500 mg/250 mL (NOW).
--- NOTE | 2017-03-23 20:53 | ED MAR SUMMARY ---
..... Medication Administration Record [facility] [address] [place] [place] [place] [address] Patient: TOMAS MONTES DE OCA Visit ID: [id number] 62y, F Weight: 68.0 kg Height/Length: 59 in BMI: 30.3 ALLERGIES: No Known Drug Allergy Given 16:05 03/23/2017 Fiordaliza Shea R.N. Medication Administered: SOLU-MEDROL [IVP] (METHYLPREDNISOLONE SODIUM SUCC), Dose: 125 mg IVP over 1 minute(s), Site: #1 left wrist. Medication Ordered: Solu-MEDROL IV 125 mg (NOW). Start 16:05 03/23/2017 Fiordaliza Shea R.N., Stop 17:30 03/23/2017 Fiordaliza Shea R.N. Medication Administered: IV NS (SALINE), Dose: IV Fluids, Rate: 1000 mL/hr, Dispensed: 1000 mL bag, Site: #1 left wrist. Medication Ordered: IV NS with Normal Saline 1 Liter: initial bolus none -, then 1000 mL/hr for X1 (NOW). Given 16:34 03/23/2017 Ronald Lerma, Medication Administered: DUONEB [NEB TX] (IPRATROPIUM-ALBUTEROL), Dose: 1 unit dose Nebulizer Neb TX. Medication Ordered: DuoNeb Neb Tx 1 unit dose (NOW). Start 19:11 03/23/2017 Fiordaliza Shea R.N., Stop 19:52 03/23/2017 Fiordaliza Shea R.N. Medication Administered: CEFTRIAXONE [IVPB], Dose: 2 gm IVPB over 20 minute(s), Rate: 150 mL/hr, Dispensed: 50 mL bag, Site: #1 left wrist. Medication Ordered: Ceftriaxone IV 2 gm/50mL (NOW). Start 19:52 03/23/2017 Fiordaliza Shea R.N., Stop 20:19 03/23/2017 Fiordaliza Shea R.N. Medication Administered: CLINDAMYCIN [IVPB], Dose: 900 mg IVPB over 20 minute(s), Rate: 150 mL/hr, Dispensed: 50 mL bag, Site: #1 left wrist. Medication Ordered: Clindamycin IV 900 mg/50mL (NOW). Start 20:20 03/23/2017 Fiordaliza Shea R.N. Medication Administered: ZITHROMAX [IVPB] (AZITHROMYCIN), Dose: 500 mg IVPB over 1 hour(s), Rate: 255 mL/hr, Dispensed: 250 mL bag, Site: #1 left wrist. Medication Ordered: Zithromax IV 500 mg/250 mL (NOW).
--- NOTE | 2017-03-23 20:53 | ED DISCHARGE INSTRUCTIONS ---
Patient: TOMAS MONTES DE OCA General Instructions [facility] VisitID: [id number] [address] [place] [address] 62y, F Registration Date/Time: 03/23/2017 Pulmonary nodule. Pneumonia. Renal insufficiency. Urinary tract infection. (Electronically signed by Juan Durant MD 03/23/2017 20:40)
--- NOTE | 2017-03-23 20:53 | ED DISCHARGE INSTRUCTIONS ---
Patient: TOMAS MONTES DE OCA General Instructions [facility] VisitID: [id number] [address] [place] [address] 62y, F Registration Date/Time: 03/23/2017 Pulmonary nodule. Pneumonia. Renal insufficiency. Urinary tract infection. (Electronically signed by Juan Durant MD 03/23/2017 20:40)
--- NOTE | 2017-03-23 20:53 | ED MED RECONCILIATION SUMMARY ---
Patient: TOMAS MONTES DE OCA Medication Reconciliation Report [facility] VisitID: [id number] [address] [place] [address] 62y, F Registration Date/Time: 03/23/2017 Weight: 68.0 kg Height/Length: 59 in. BMI: 30.3 ALLERGIES: No Known Drug Allergy The patient's Home Medications are listed below: THE FOLLOWING MEDICATIONS NEED TO BE RECONCILED: AmLODIPine Besylate Oral 10 mg, daily Carvedilol 6.25mg BID Doxazosin Mesylate Oral (1 mg) 1 tablet, hs FLUoxetine HCl Oral 40 mg, daily Imitrex 1 tab at onset o lozano and 1 in 2 hrs prn. Rosuvastatin Calcium Oral 40 mg, at bedtime TiZANidine HCl Oral 8mg a day Verapamil HCl Oral SR 180 mg, at bedtime Zofran Oral 4 mg, PRN The source(s) of the original Home Medication information: patient The following Medications were given to the patient in the Emergency Department: SOLU-MEDROL [IVP] IVP 125 mg, administered: 03/23/2017 4:05:00 PM IV NS IV Fluids bolus 0, then 1000 mL/hr, administered: 03/23/2017 4:05:00 PM Duoneb [Neb Tx] Neb TX 1 unit dose, administered: 03/23/2017 4:34:00 PM Ceftriaxone [IVPB] IVPB bolus 0, then 2 gm 150 mL/hr, administered: 03/23/2017 7:11:00 PM Clindamycin [IVPB] IVPB bolus 0, then 900 mg 150 mL/hr, administered: 03/23/2017 7:52:00 PM Zithromax [IVPB] IVPB bolus 0, then 500 mg 255 mL/hr, administered: 03/23/2017 8:20:00 PM The following Medications were prescribed to the patient: None.
--- NOTE | 2017-03-23 20:53 | ED MED RECONCILIATION SUMMARY ---
Patient: TOMAS MONTES DE OCA Medication Reconciliation Report [facility] VisitID: [id number] [address] [place] [address] 62y, F Registration Date/Time: 03/23/2017 Weight: 68.0 kg Height/Length: 59 in. BMI: 30.3 ALLERGIES: No Known Drug Allergy The patient's Home Medications are listed below: THE FOLLOWING MEDICATIONS NEED TO BE RECONCILED: AmLODIPine Besylate Oral 10 mg, daily Carvedilol 6.25mg BID Doxazosin Mesylate Oral (1 mg) 1 tablet, hs FLUoxetine HCl Oral 40 mg, daily Imitrex 1 tab at onset o lozano and 1 in 2 hrs prn. Rosuvastatin Calcium Oral 40 mg, at bedtime TiZANidine HCl Oral 8mg a day Verapamil HCl Oral SR 180 mg, at bedtime Zofran Oral 4 mg, PRN The source(s) of the original Home Medication information: patient The following Medications were given to the patient in the Emergency Department: SOLU-MEDROL [IVP] IVP 125 mg, administered: 03/23/2017 4:05:00 PM IV NS IV Fluids bolus 0, then 1000 mL/hr, administered: 03/23/2017 4:05:00 PM Duoneb [Neb Tx] Neb TX 1 unit dose, administered: 03/23/2017 4:34:00 PM Ceftriaxone [IVPB] IVPB bolus 0, then 2 gm 150 mL/hr, administered: 03/23/2017 7:11:00 PM Clindamycin [IVPB] IVPB bolus 0, then 900 mg 150 mL/hr, administered: 03/23/2017 7:52:00 PM Zithromax [IVPB] IVPB bolus 0, then 500 mg 255 mL/hr, administered: 03/23/2017 8:20:00 PM The following Medications were prescribed to the patient: None.
[2017-03-23 21:01] VITALS: BP 138/91
[2017-03-23 22:38] VITALS: BP 132/61
[2017-03-24] VITALS (11 sets, daily range): BP systolic 112–142; BP diastolic 51–69
[2017-03-24] MEDS ORDERED: ZESTRIL2.5 MG PO (00:10)
[2017-03-24] MEDS ORDERED: ZESTRIL10 MG PO (00:15)
[2017-03-24] MEDS ORDERED: ONDANSETRON ODT4 MG PO (00:17)
[2017-03-24] MEDS ORDERED: IMITREX50 MG (00:20)
[2017-03-24] MEDS ORDERED: TIZANIDINE HCL4 MG PO ×2 (00:22)
[2017-03-24] MEDS ORDERED: VERAPAMIL HCL180 M4 PO (00:23)
[2017-03-24] MEDS ORDERED: FLUOXETINE20 MG PO (00:24)
[2017-03-24] MEDS ORDERED: AMLODIPINE BESY10 MG PO (00:25)
[2017-03-24] MEDS ORDERED: METHADONE HCL10 MG PO (00:30)
[2017-03-24] MEDS ORDERED: CARDURA1 MG PO (00:31)
[2017-03-24] MEDS ORDERED: CARVEDILOL6.25 MG PO (00:31)
[2017-03-24] MEDS ORDERED: CRESTOR40 MG PO (00:32)
--- NOTE | 2017-03-24 07:50 | Progress Note ---
Subjective General Note Date: 2016 Admission Date: March 14, 2017 Hospital Day: 2 PCP: Dr. Jerry Advanced Directive: No CODE Room: 205 62-year-old white female with a significant past medical history of recurrent pneumonia, hypercholesterolemia, hypertension, chronic pain, fibromyalgia, depression, migraine headache, polymyositis, who presented to [facility] emergency department on the day of admission with the above chief complaint. [facility] ER evaluation was consistent with recurrent right lower lobe pneumonia. Secondary to the above, the patient was admitted by Mikey Perez M.D. for further evaluation and treatment. Subjective: Patient report cough. She has not been up frequently. Other than to go to the restroom. Continues to have shortness of breath activity. Patient having mild improvement in appetite. Her acute changes. No fever, nausea, vomiting. Constitutional Fever. Denies: Sweats. Respiratory SOB w/exertion. Denies: Hemoptysis. Cardiovascular Denies: Palpitations. Physical Exam Vital Signs / I&Os Vital Signs Date Time Temp Pulse Resp B/P Pulse O2 O2 Flow FiO2 Ox Delivery Rate 03/24 0629 97.9 93 20 129/58 98 Nasal 2.0 Cannula 03/24 0304 98.2 88 26 131/69 97 Nasal 2.0 Cannula 03/24 0205 2.0 03/23 2331 100 05/ 2238 97.9 100 30 132/61 98 Nasal 2.0 Cannula 03/23 2200 Nasal 2.0 Cannula 03/23 2122 2.0 05 2101 98.2 113 28 138/91 97 Nasal 2.0 Cannula 03/23 1727 2.0 03/23 1640 5.0 I&O 03/23 0800 03/23 1600 03/24 0000 Intake Total Output Total 200 Balance -200 General Appearance Oriented X3, Cooperative HEENT EOMI Lungs Normal air movement, rales, rhonchi, right base, Neck Supple Cardiovascular systolic murmur 2/6 Abdomen Soft, No tenderness Extremities No edema, Normal pulses Neurological Cranial nerves intact Psych/Mental Status Mood normal LAB Results Laboratory Tests 03/23 03/23 1530 1530 Chemistry Plasma Sodium (136 - 145 mmol/L) 134 Plasma Potassium (3.5 - 5.1 mmol/L) 3.8 Plasma Chloride (98 - 107 mmol/L) 95 CO2 (Enzymatic) (21 - 32 mmol/L) 23 BUN (7 - 18 mg/dL) 22 Creatinine (0.6 - 1.3 mg/dL) 1.6 Est GFR ( Amer) (mL/min) 41.94 Est GFR (Non-Af Amer) (mL/min) 34.60 Glucose (70 - 110 mg/dL) 107 Plasma Calcium (8.5 - 10.1 mg/dL) 9.2 Total Bilirubin (0.0 - 1.0 mg/dL) 0.9 AST (15 - 37 U/L) 66 ALT (12 - 78 U/L) 37 Alkaline Phosphatase (46 - 116 U/L) 433 Creatine Kinase (24 - 260 U/L) 81 Troponin (0.00 - 1.5 ng/mL) <0.05 B-Natriuretic Peptide (5 - 100 pg/ml) 178 Total Protein (6.4 - 8.2 g/dL) 8.1 Albumin (3.3 - 5.0 g/dL) 2.7 Amylase (25 - 115 U/L) 37 Lipase (73 - 393 U/L) 99 Coagulation INR (0.8 - 1.2) 1.1 APTT (24 - 34 SECONDS) 46 D-Dimer, Quantitative (0.27 - 0.52 ug/mLFEU) 7.95 Hematology WBC (4.5 - 11.5 K/uL) 14.3 RBC (4.00 - 5.20 M/uL) 3.44 Hgb (12.0 - 16.0 gm/dL) 10.3 Hct (36.0 - 46.0 %) 30.0 MCV (80 - 100 fL) 87 MCH (26 - 34 pg) 30 RDW (11.6 - 14.8 %) 13.7 Neut % (Auto) (50 - 75 %) 77.8 Lymph % (Auto) (25 - 40 %) 10.9 [place] % (Auto) (3 - 14 %) 10.4 Eos % (Auto) (0 - 4 %) 0.8 Baso % (Auto) (0 - 2 %) 0.1 Plt Count, EDTA (150 - 400 K/uL) 280 PUBS MCHC (31 - 37 g/dL) 34 Urines Urine Color LATOYA Urine Appearance CLOUDY Urine pH (5.0 - 8.0) 6.0 Ur Specific [place] (1.010 - 1.030) 1.020 Urine Protein (NEGATIVE) 3+ Urine Ketones (NEGATIVE) NEGATIVE Urine Blood (NEGATIVE) 3+ Urine Nitrite (NEGATIVE) NEGATIVE Urine Bilirubin (NEGATIVE) 1+ Urine Urobilinogen (0.2 - 1.0 EU/dL) 1.0 Ur Leukocyte Esterase (NEGATIVE) POSITIVE Urine RBC (0 - 1 rbc/hpf) 1-3 Urine WBC (0 - 1 wbc/hpf) 15-25 Ur Epithelial Cells (0 - 5 EPI/hpf) 5-10 Urine Bacteria (NONE SEEN) MODERATE (2+ TO 3+) Urine Glucose (NEGATIVE) NEGATIVE Urine Comment CULTURE INDICATED 03/23 03/24 03/24 03/24 1530 0544 0544 0544 Chemistry Plasma Sodium (136 - 145 mmol/L) 140 Plasma Potassium (3.5 - 5.1 mmol/L) 3.7 Plasma Chloride (98 - 107 mmol/L) 101 CO2 (Enzymatic) (21 - 32 mmol/L) 23 BUN (7 - 18 mg/dL) 20 Creatinine (0.6 - 1.3 mg/dL) 1.2 Est GFR ( Amer) (mL/min) 58.45 Est GFR (Non-Af Amer) (mL/min) 48.22 Glucose (70 - 110 mg/dL) 121 Plasma Calcium (8.5 - 10.1 mg/dL) 8.9 Iron (35 - 150 ug/dL) 24 TIBC (260 - 445 ug/dL) 192 Iron Saturation (15 - 50 %) 13 Total Bilirubin (0.0 - 1.0 mg/dL) 0.4 GGT Pending AST (15 - 37 U/L) 44 ALT (12 - 78 U/L) 31 Alkaline Phosphatase (46 - 116 U/L) 381 Total Protein (6.4 - 8.2 g/dL) 7.7 Albumin (3.3 - 5.0 g/dL) 2.4 Vitamin B12 (211 - 946 pg/mL) Pending Folate (>3.0 ng/mL) Pending Procalcitonin (0 - 0.5 ng/mL) 1.6 Microbiology Date/Time Procedure - Status Source Growth 03/23 1900 Blood Culture - RECD BLOOD 03/23 1617 Blood Culture - RECD BLOOD 03/23 1530 Urine Culture - RECD URINE CC Assessment and Plan Problem List 1. Pneumonia Status Acute Onset Date Unknown Plan Recurrent pneumonia since November 2016. Associated lymphadenopathy. Need further imaging or procedure to rule out etiological concerns of cancer and her bronchial lesions or recurrent pneumonia infection. Attending with her Andrea and Payam., Consulted general surgery. General surgery is planning on bronchoscopy today. Will await the results 2. UTI (urinary tract infection) Plan Awaiting cultures and sensitivities.. Given gram IV Rocephin. 3. Fibromyalgia Status Chronic Onset Date Unknown Plan Continue with the narcotic for pain control. Patient has been on high-dose narcotics in the past. We'll review recommendations on other alternatives for pain control. Attempts procedure and then follow-up with potential physical therapy for alternatives to pain control. 4. Hypertension Status Chronic Onset Date Unknown Plan Monitor blood pressure. Maintain a low-salt diet. 5. Alkaline phosphatase elevation Status Acute Onset Date Unknown Plan N Elevated alkaline phosphatase. GGT ordered. Transaminase elevation. Considering gallbladder ultrasound study 6. Anemia Status Acute Onset Date Unknown Plan H&H 10.3/30.0. MCV 87 Pending iron studies, B12, folate Monitor Current status: Stable, but poor Anticipated discharge date: 1-2 [address] discharge placement. Home Patient care time: Time spent in chart review, patient interview, physical exam, CPOE, and care documentation: 5 minutes Visit to patient today: 1 Complexity of care: Moderate Consultation Dr. Patterson, general surgery E&M Codes Rounding: Inpt-High/[id number]
--- NOTE | 2017-03-24 11:03 | Consultation Report ---
History Chief Complaint Pneumonia History of Present Illness 62-year-old female who was admitted via the emergency room by the hospitalist. Suspect a diagnosis unresolving pneumonia. According to the patient in December 2016 she was admitted to [facility] for approximately 8 days. She was discharged and treated as outpatient with antibiotics. Approximately 5-8 days after stopping her antibiotics she developed a sore throat and dry cough and low-grade temperature. She was evaluated by her primary care provider who put her back on antibiotics. When she finished these antibiotics approximate 10 days later she developed recurrent symptoms of sore throat dry cough and low-grade temperature and exertional shortness of breath. She states that the shortness of breath now is worsened when she was admitted to [facility] in December. PAST MEDICAL HISTORY: Status post appendectomy. Status post tonsillectomy adenoidectomy. Status post . Status post partial hysterectomy 2. History of hypertension, chronic back pain, polymyositis, and fibromyalgia. MEDICATIONS: Amlodipine 10 mg daily Carvedilol 1 mg daily Fluoxetine 20 mg daily Lisinopril 10 mg daily Methadone 16 mg daily Ondansetron 4 mg every 4 hours Crestor 40 mg daily Imitrex 50 mg daily Verapamil 180 mg daily Tizanidine 4 mg twice a day Patient History 1. Pneumonia Social History Patient is . She lives with her sister. Patient has a son who is alive and well. Her daughter committed suicide. Patient stopped smoking in December. Prior to that she smoked a pack cigarettes a day. Patient does not drink alcohol. Patient rarely drinks coffee. Does not use recreational drugs Patient is retired nurse's aide. FAMILY HISTORY: Mother age 86 history of parkinsonism. Father in his 70s from cardiomegaly. Patient has 3 brothers and 3 sisters alive and well. Medications and Allergies Medications Current Medications Sig/Alexx Start time Last Medication Dose Route Stop Time Status Admin Doxazosin Mesylate 1 MG QHS 03/24 2100 AC PO Atorvastatin Calcium 40 MG QPM / 1800 AC PO Ceftriaxone Sodium/ 50 ML 1800 / 1800 AC Dextrose IV Azithromycin 500 MG 1700 05/06 1700 AC Sodium Chloride 250 ML IV / 1800 Amlodipine Besylate 10 MG DAILY 03/24 0900 AC 05/ PO 0912 Fluoxetine HCl 40 MG DAILY 03/24 0900 AC 03/24 PO 0912 Pantoprazole Sodium 40 MG DAILY@0600 03/24 0600 AC 03/24 Sesquihydrate PO 0624 Verapamil HCl 180 MG QHS 03/24 06 AC 03/24 PO 0627 Heparin Sodium 5,000 UNITS Q8HR 03/23 2200 AC 03/24 (Porcine) SC 0625 Lisinopril 10 MG BID 03/23 2200 AC 03/24 PO 0912 Methadone HCl 20 MG QID 03/23 2200 AC 03/24 PO 0625 Carvedilol 6.25 MG BIDWC 03/23 2136 AC 03/24 PO 0912 Albuterol/Ipratropium 3 ML RTQ6H PRN 03/23 2030 AC 03/23 IN 2121 Acetaminophen 650 MG Q6H PRN 03/23 2015 AC PO Morphine Sulfate 1 MG Q30MIN PRN 03/23 2015 AC 03/23 IV 2158 Ondansetron HCl 4 MG Q6H PRN 03/23 2015 AC IV Sodium Chloride 1,000 ML ASDIRECTED 03/23 2015 03/24 IV 0740 Allergies Coded Allergies: NKA (03/23/17) Allergies No Known Drug Allergy. --15:17 Fiordaliza Shea R.N. Review of Systems Other AB 0. Menarche age 11. First for long-term age 16. Last menstrual period age 21. Last Pap smear a while ago. Last mammogram one year ago. Patient admits to shortness of breath and cough. Patient denies any history of hepatitis, jaundice, rheumatic fever, heart murmurs requiring antibiotics, or bleeding tendencies. The remaining 12 point review of systems is negative. Physical Exam Vital Signs / I&Os Vital Signs Date Time Temp Pulse Resp B/P Pulse O2 O2 Flow FiO2 Ox Delivery Rate 03/24 1005 97.9 81 20 132/58 96 Nasal 1.0 Cannula 03/23 2238 97.9 100 30 132/61 98 Nasal 2.0 Cannula 03/23 2200 Nasal 2.0 Cannula 03/23 2122 2.0 03/23 2101 98.2 113 28 138/91 97 Nasal 2.0 Cannula 03/23 1727 2.0 03/23 1640 5.0 I&O 03/23 0800 / 1600 05 0000 Intake Total Output Total 200 Balance -200 General Appearance Alert, Oriented X3, Cooperative, No acute distress HEENT Normal exam, PERRLA, EOMI, Moist mucous membranes, patient wearing upper and lower dentures Lungs Clear to auscultation Neck No JVD, No masses, No thyromegaly, No lymphadenopathy Cardiovascular Regular rate and rhythm Abdomen Normal bowel sounds, Soft, No tenderness Extremities No edema Skin no peripheral cyanosis Neurological No lateralizing signs Psych/Mental Status Mood normal LAB Results Laboratory Tests 03/23 03/23 1530 1530 Chemistry Plasma Sodium (136 - 145 mmol/L) 134 Plasma Potassium (3.5 - 5.1 mmol/L) 3.8 Plasma Chloride (98 - 107 mmol/L) 95 CO2 (Enzymatic) (21 - 32 mmol/L) 23 BUN (7 - 18 mg/dL) 22 Creatinine (0.6 - 1.3 mg/dL) 1.6 Est GFR ( Amer) (mL/min) 41.94 Est GFR (Non-Af Amer) (mL/min) 34.60 Glucose (70 - 110 mg/dL) 107 Plasma Calcium (8.5 - 10.1 mg/dL) 9.2 Total Bilirubin (0.0 - 1.0 mg/dL) 0.9 AST (15 - 37 U/L) 66 ALT (12 - 78 U/L) 37 Alkaline Phosphatase (46 - 116 U/L) 433 Creatine Kinase (24 - 260 U/L) 81 Troponin (0.00 - 1.5 ng/mL) <0.05 B-Natriuretic Peptide (5 - 100 pg/ml) 178 Total Protein (6.4 - 8.2 g/dL) 8.1 Albumin (3.3 - 5.0 g/dL) 2.7 Amylase (25 - 115 U/L) 37 Lipase (73 - 393 U/L) 99 Coagulation INR (0.8 - 1.2) 1.1 APTT (24 - 34 SECONDS) 46 D-Dimer, Quantitative (0.27 - 0.52 ug/mLFEU) 7.95 Hematology WBC (4.5 - 11.5 K/uL) 14.3 RBC (4.00 - 5.20 M/uL) 3.44 Hgb (12.0 - 16.0 gm/dL) 10.3 Hct (36.0 - 46.0 %) 30.0 MCV (80 - 100 fL) 87 MCH (26 - 34 pg) 30 RDW (11.6 - 14.8 %) 13.7 Neut % (Auto) (50 - 75 %) 77.8 Lymph % (Auto) (25 - 40 %) 10.9 [place]ell % (Auto) (3 - 14 %) 10.4 Eos % (Auto) (0 - 4 %) 0.8 Baso % (Auto) (0 - 2 %) 0.1 Plt Count, EDTA (150 - 400 K/uL) 280 PUBS MCHC (31 - 37 g/dL) 34 Urines Urine Color LATOYA Urine Appearance CLOUDY Urine pH (5.0 - 8.0) 6.0 Ur Specific [place] (1.010 - 1.030) 1.020 Urine Protein (NEGATIVE) 3+ Urine Ketones (NEGATIVE) NEGATIVE Urine Blood (NEGATIVE) 3+ Urine Nitrite (NEGATIVE) NEGATIVE Urine Bilirubin (NEGATIVE) 1+ Urine Urobilinogen (0.2 - 1.0 EU/dL) 1.0 Ur Leukocyte Esterase (NEGATIVE) POSITIVE Urine RBC (0 - 1 rbc/hpf) 1-3 Urine WBC (0 - 1 wbc/hpf) 15-25 Ur Epithelial Cells (0 - 5 EPI/hpf) 5-10 Urine Bacteria (NONE SEEN) MODERATE (2+ TO 3+) Urine Glucose (NEGATIVE) NEGATIVE Urine Comment CULTURE INDICATED 03/23 03/24 03/24 03/24 1530 0544 0544 0544 Chemistry Plasma Sodium (136 - 145 mmol/L) 140 Plasma Potassium (3.5 - 5.1 mmol/L) 3.7 Plasma Chloride (98 - 107 mmol/L) 101 CO2 (Enzymatic) (21 - 32 mmol/L) 23 BUN (7 - 18 mg/dL) 20 Creatinine (0.6 - 1.3 mg/dL) 1.2 Est GFR ( Amer) (mL/min) 58.45 Est GFR (Non-Af Amer) (mL/min) 48.22 Glucose (70 - 110 mg/dL) 121 Plasma Calcium (8.5 - 10.1 mg/dL) 8.9 Iron (35 - 150 ug/dL) 24 TIBC (260 - 445 ug/dL) 192 Iron Saturation (15 - 50 %) 13 Total Bilirubin (0.0 - 1.0 mg/dL) 0.4 GGT Pending AST (15 - 37 U/L) 44 ALT (12 - 78 U/L) 31 Alkaline Phosphatase (46 - 116 U/L) 381 Total Protein (6.4 - 8.2 g/dL) 7.7 Albumin (3.3 - 5.0 g/dL) 2.4 Vitamin B12 (211 - 946 pg/mL) 1863 Folate (>3.0 ng/mL) 16.6 Procalcitonin (0 - 0.5 ng/mL) 1.6 Microbiology Date/Time Procedure - Status Source Growth 03/23 1900 Blood Culture - RECD BLOOD 03/23 1617 Blood Culture - RECD BLOOD 03/23 1530 Urine Culture - RES URINE CC Imaging CTA obtained via the emergency room indicates small right supraclavicular, upper and lower paratracheal, subcarinal, right hilar adenopathy. An 8 x 5 mm nodule in the right upper lobe. Right upper lobe bronchiectasis with diffuse consolidation of the right upper lobe and middle lobe. There is right lobe volume loss. Consistent with post obstructive pneumonia. Cannot rule out neoplastic process. Assessment and Plan Problem List 1. Pneumonia Onset Date Unknown Status Acute Plan CT evidence of possible postobstructive pneumonia. After lengthy discussion with the findings with the patient, recommend bronchoscopy to rule out neoplastic process as the cause of the postobstructive pneumonia. The patient understands and agrees to proceed. We will schedule her appropriately.
--- NOTE | 2017-03-24 14:23 | Operative Report ---
Operative Report Date of Surgery: 03/24/17 Preoperate Diagnosis: rule out postobstructive pneumonia Postoperative Diagnosis: no obstructive process Surgeon: Alec Patterson MD Piston Maker Surgeon: none Procedure Performed: Bronchoscopy and cytologic brushings Anesthesia: Gen. endotracheal Indications: 62-year-old female admitted to [facility] emergency room where she presented with shortness of breath and ACTH consistent with consolidation right upper and middle lobe. Possible postobstructive pneumonia. FINDINGS: Normal-appearing nerissa Right mainstem bronchus normal. Right upper lobe bronchus no obstructive process. Right middle lobe bronchus no evidence of obstruction. Right lower lobe bronchus and no evidence of obstructive process. There appeared to be a considerable amount of inflammatory changes of the right lower lobe and middle lobe. Left mainstem bronchus normal. Left upper and lower lobe bronchi normal. Surgical Technique: Patient was brought to the operating room placed in the supine position. Patient underwent general endotracheal anesthesia. After proper anesthesia had taken effect, an Olympus PFB Type 60 was lubricated and passed down the endotracheal tube. The nerissa was identified and appeared to be nice and sharp. The scope then passed preferentially down the right mainstem bronchus with no obstructive process identified. The tip was then deflected to the right upper lobe visualizing the apical,posterior and superior segments. The scope was withdrawn and directed down the middle lobe bronchus and no obstructive process identified. The scope was then deflected into the right lower lobe bronchi and again no obstructive process identified. Multiple brushings were obtained from the right lower lobe and right middle lobe because the inflammatory nature of the findings. Mucomyst was sprayed through the bronchoscope into the right upper middle and lower lobe bronchi. The bronchoscope was withdrawn and directed down the left mainstem bronchus, the left upper and lower lobe bronchi were identified. No areas of occlusion identified there either. The scope was withdrawn. The patient was extubated and transferred to the recovery room in stable condition. There were no intraoperative or anesthetic complications. COMPLICATIONS: None CONDITION: Stable to postoperative anesthesia recovery room. EBL: None FLUIDS: 400 cc lactate Ringers SPECIMENS: Cytologic brushings right lower and middle lobe.
--- NOTE | 2017-03-24 15:58 | DIAGNOSTIC IMAGING REPORT ---
PROCEDURE: XR CHEST 2 VIEW INDICATION: EVAL LUNG, bronchoscopy. TECHNIQUE: C-arm fluoroscopy provided for Dr. Perez. Fluoroscopy time 36 seconds, radiation dose 7.9 mGy. COMPARISON: Chest x-ray 03/23/2017. FINDINGS: Three spot views demonstrate a scope in the right mainstem bronchus. IMPRESSION: 1. Fluoroscopic guidance for bronchoscopy performed by Dr. Perez.
--- NOTE | 2017-03-24 16:01 | DIAGNOSTIC IMAGING REPORT ---
PROCEDURE: XR CHEST 1 VIEW INDICATION: post bronch TECHNIQUE: Portable AP view 02:49 p.m. COMPARISON: Chest x-ray 03/23/2017. FINDINGS: Poor inspiration with mild progression of right middle lobe and lower lobe consolidation. New mild left basilar parenchymal changes may represent an additional area of pneumonia versus atelectasis. There is no pneumothorax. Heart and mediastinum are normal. Thorax is normal. IMPRESSION: 1. No pneumothorax 2. Poor inspiration with mild progression of right middle and lower lobe consolidation 3. New small left basilar infiltrate versus atelectasis.
[2017-03-25 03:00] VITALS: BP 159/82
--- NOTE | 2017-03-25 06:43 | Progress Note ---
Subjective General Note Date: 2016 Admission Date: March 14, 2017 Hospital Day: 2 PCP: Dr. Jerry Advanced Directive: No CODE Room: 205 62-year-old white female with a significant past medical history of recurrent pneumonia, hypercholesterolemia, hypertension, chronic pain, fibromyalgia, depression, migraine headache, polymyositis, who presented to [facility] emergency department on the day of admission with the above chief complaint. [facility] ER evaluation was consistent with recurrent right lower lobe pneumonia. Secondary to the above, the patient was admitted by Mikey Perez M.D. for further evaluation and treatment. Subjective: Patient had difficult time early this morning with right chest pain. Patient is status post bronchoscopy. Dr. Patterson reported that there is redness in the lower lung the upper looked okay. Given the level of pain and difficulty with breathing patient was taken in for a CT angios. CT angios showed that the lower lung has improved from previous studies. No sign of the PE. Patient continues to have cough and chest discomfort. Patient is had good appetite. No fever, nausea, vomiting. Constitutional Denies: Chills, Sweats. Respiratory Dry, SOB w/exertion, Wheezing, Pleuritic Pain, Other (chest pain). Cardiovascular Denies: Palpitations. Gastrointestinal Denies: Abdominal Pain. Physical Exam Vital Signs / I&Os Vital Signs Date Time Temp Pulse Resp B/P Pulse O2 O2 Flow FiO2 Ox Delivery Rate 03/25 0300 97.9 88 16 159/82 93 Nasal 2.0 Cannula 05/ 2245 Nasal 2.0 Cannula / 2223 97.7 89 17 142/66 94 Nasal 2.0 Cannula / 1944 2.0 05/06 1851 95 Face Tent 11.0 05/06 1810 97.9 05/06 1807 84 18 115/58 98 Face Tent 70 05/06 1731 89 18 129/61 98 Face Tent 70 05/06 1711 92 05/06 1704 90 18 112/51 98 Face Tent 70 05/06 1634 87 18 128/54 95 Face Tent 70 05/06 1615 93 18 134/57 94 Face Tent 70 05/06 1600 95 24 133/55 95 Face Tent 11.0 05/06 1558 Face Tent 11.0 05/06 1551 98.1 95 18 137/62 93 Face Tent 50 05/06 1535 95 30 124/64 96 05/06 1525 97.9 94 32 130/56 96 Face Tent 15.0 05/06 1515 95 32 125/46 98 05/06 1505 98.4 93 30 132/73 96 Tent 15.0 05/06 1455 104 34 139/83 96 05/06 1449 102 26 138/85 94 05/06 1445 15.0 05/06 1440 106 32 170/88 94 05/06 1430 110 29 161/87 93 05/06 1422 103 27 160/86 91 05/06 1417 98.4 105 26 154/68 90 16.0 Non-Rebreather Mask 03/24 1005 97.9 81 20 132/58 96 Nasal 1.0 Cannula 03/24 0921 Nasal 2.0 Cannula 03/24 0912 84 03/24 0900 2.0 I&O 03/24 0800 / 1600 03/25 0000 Intake Total 1184 835 982 Output Total 700 600 750 Balance 484 235 232 General Appearance Oriented X3 HEENT EOMI Lungs random wheeze. Rhonchi or crackles right leg mid to lower lung Neck Supple, No JVD Cardiovascular Regular rate and rhythm, Normal S1 and S2 LAB Results Laboratory Tests 03/25 0632 Chemistry Plasma Sodium (136 - 145 mmol/L) 142 Plasma Potassium (3.5 - 5.1 mmol/L) 3.0 Plasma Chloride (98 - 107 mmol/L) 104 CO2 (Enzymatic) (21 - 32 mmol/L) 24 BUN (7 - 18 mg/dL) 18 Creatinine (0.6 - 1.3 mg/dL) 1.1 Est GFR ( Amer) (mL/min) >60 Est GFR (Non-Af Amer) (mL/min) 53.32 Glucose (70 - 110 mg/dL) 81 Plasma Calcium (8.5 - 10.1 mg/dL) 8.8 Total Bilirubin (0.0 - 1.0 mg/dL) 0.3 AST (15 - 37 U/L) 42 ALT (12 - 78 U/L) 31 Alkaline Phosphatase (46 - 116 U/L) 318 Total Protein (6.4 - 8.2 g/dL) 7.1 Albumin (3.3 - 5.0 g/dL) 2.3 Hematology WBC (4.5 - 11.5 K/uL) 14.1 RBC (4.00 - 5.20 M/uL) 3.36 Hgb (12.0 - 16.0 gm/dL) 10.0 Hct (36.0 - 46.0 %) 29.6 MCV (80 - 100 fL) 88 MCH (26 - 34 pg) 30 RDW (11.6 - 14.8 %) 14.0 Neut % (Auto) (50 - 75 %) 79.8 Lymph % (Auto) (25 - 40 %) 12.9 Coffey % (Auto) (3 - 14 %) 6.4 Eos % (Auto) (0 - 4 %) 0.3 Baso % (Auto) (0 - 2 %) 0.6 Plt Count, EDTA (150 - 400 K/uL) 299 PUBS MCHC (31 - 37 g/dL) [address] angiogram 03/25/2017 1. No pulmonary embolus or pneumothorax. 2. Interval improvement in right lower lobe consolidation. 3. Interval development of patchy alveolitis in the right upper lobe, and small consolidation in the posterior left lower lobe. 4. Persistent adenopathy. Assessment and Plan Problem List 1. Pneumonia Status Acute Onset Date Unknown Plan It appears the pneumonias slightly improved. No signs of obstructive pneumonia through bronchoscopy. Recent CT angios showed some improvement in the lung profile. No sign of a PE. 2. Fibromyalgia Status Chronic Onset Date Unknown Plan Chronic pain. Continue with the pain medicine coverage 3. Hypertension Status Chronic Onset Date Unknown Plan Blood pressure is been well controlled. No changes 4. Alkaline phosphatase elevation Status Acute Onset Date Unknown Plan Persistently high alkaline phosphatase. Along with the elevated liver enzymes. Continue to monitor and follow. No sign of gallbladder disease as seen on CT exam incidentally. 5. Anemia Status Acute Onset Date Unknown Plan Monitor Current status: Stable, fair stable Anticipated discharge date: 1-2 days Anticipated discharge placement. Home; consider home Patient care time: Time spent in chart review, patient interview, physical exam, CPOE, and care documentation: 5 minutes Visit to patient today: Complexity of care: Moderate Consultation Dr. Patterson, general surgery E&M Codes Rounding: Inpt-High/[id number]
[2017-03-25 06:44] VITALS: BP 159/71
--- NOTE | 2017-03-25 09:16 | DIAGNOSTIC IMAGING REPORT ---
PROCEDURE: CTA THORAX WITH CONTRAST INDICATION: SUDDEN ONSET RIGHT SIDE CHEST PAIN WITH DESATURATION. SOB TECHNIQUE: 84 ml of Isovue 370 was injected intravenously and axial images were obtained of the chest with 3D sagittal and coronal MIP reconstructions. COMPARISON: 03/23/2017 FINDINGS: There are now patchy parenchymal densities scattered throughout the right upper lobe, particularly anteromedially. There is decreased parenchymal density laterally in the right middle lobe and decrease in consolidation involving the right lower lobe with persistence of consolidation posteriorly and inferiorly. There is a small new consolidation posteriorly in the left lower lobe. Small right pleural effusion persists. No evidence of pneumothorax. No pulmonary embolus visible. Stable aorta and great vessels. Persistent right hilar and mediastinal adenopathy. Persistent right supraclavicular adenopathy. Heart size is unchanged. No pericardial effusion. The right upper lobe lung nodule is much less visible secondary to surrounding alveolitis. No new mediastinal masses. No changes to the osseous structures or upper abdomen. IMPRESSION: 1. No pulmonary embolus or pneumothorax. 2. Interval improvement in right lower lobe consolidation. 3. Interval development of patchy alveolitis in the right upper lobe, and small consolidation in the posterior left lower lobe. 4. Persistent adenopathy. 5. Findings called to the floor and discussed with Dr. Salinas.
[2017-03-25 11:02] VITALS: BP 130/58
[2017-03-25 14:28] VITALS: BP 130/59
[2017-03-25 18:35] VITALS: BP 118/85
[2017-03-25 23:37] VITALS: BP 126/61
[2017-03-26] VITALS (8 sets, daily range): BP systolic 114–155; BP diastolic 54–92
--- NOTE | 2017-03-26 06:59 | Progress Note ---
Subjective General Note Date: 2016 Admission Date: 03/23/2017 Hospital Day: 4 PCP: Dr. Jerry Advanced Directive: No CODE In Patient Acute Care Room: 205 62-year-old white female with a significant past medical history of recurrent pneumonia, hypercholesterolemia, hypertension, chronic pain, fibromyalgia, depression, migraine headache, polymyositis, who presented to [facility] emergency department on the day of admission with the above chief complaint. [facility] ER evaluation was consistent with recurrent right lower lobe pneumonia. Secondary to the above, the patient was admitted by Mikey Perez M.D. for further evaluation and treatment. Subjective: Patient reports that she is still having the right chest pain. Overall he is feeling a little bit better. Patient continues to have difficulty with coughing. Patient is still short of breath with activity. Oxygen remains had 2 L nasal cannula Patient have decent appetite. Pain control is been a little bit better today Patient request None Physical Exam Vital Signs / I&Os Vital Signs Date Time Temp Pulse Resp B/P Pulse O2 O2 Flow FiO2 Ox Delivery Rate 03/26 0607 98.8 87 17 146/92 94 Nasal 3.5 Cannula / 0358 97.7 75 18 155/83 96 Nasal 3.5 Cannula / 0244 Nasal 3.5 Cannula / 2337 97.7 126/61 05/ 2255 97.7 88 18 96 3.5 05/ 2212 4.0 05/ 1854 4.0 05/ 1842 96 05/ 1835 98.1 93 20 118/85 95 Nasal 3.0 Cannula 05/07 1428 98.1 91 20 130/59 96 Nasal 3.0 Cannula / 1342 3.0 05/07 1102 98.1 91 24 130/58 97 Nasal 4.0 Cannula 05/07 0914 5.0 05/ 0828 80 I&O 05/07 0800 05/07 1600 05/08 0000 Intake Total 1648 1272 1278 Output Total 850 1150 475 Balance 798 122 803 General Appearance Oriented X3, Cooperative, No acute distress HEENT EOMI Lungs rhonchi rales right lower lung field, wheezing bilateral lung valentine. Good airway entry. Cardiovascular Regular rate and rhythm, Normal S1 and S2 Assessment and Plan Problem List 1. Pneumonia Status Acute Onset Date Unknown Plan Continue with the antibiotic until completion. Pulmonary follow-up. 2. UTI (urinary tract infection) Plan Treating the UTI. Currently on antibiotics. Patient is had no other symptoms. Follow-up with primary care as an outpatient 3. Fibromyalgia Status Chronic Onset Date Unknown Plan Chronic pain followed by a physician down in [place]. Patient on a methadone treatment program. 4. Hypertension Status Chronic Onset Date Unknown Plan Blood pressure appears to be well controlled. Continue with the antihypertensives. Salt restrictions recommended 5. Anemia Status Acute Onset Date Unknown Plan Iron supplementation. Previous iron panel performed. Showing iron deficiency. Ferrous sulfate 325 mg twice a day. 6. Alkaline phosphatase elevation Status Acute Onset Date Unknown Plan Alkaline phosphatase normalizing. Recheck labs in the morning. Current status: Stable Anticipated discharge date potentially 03/27/2017 Anticipated discharge placement: Patient care time: Time spent in chart review, patient interview, physical exam, CPOE, and care documentation: 25 minutes Visit to patient today: Complexity of care: Mild/moderate Initial patient evaluation: Emergency department DVT prophylaxis: Heparin 5000 units subcutaneous every 8 hours E&M Codes Rounding: Inpt-Moderate/[id number]
[2017-03-27 03:20] VITALS: BP 148/86
--- NOTE | 2017-03-27 07:18 | Progress Note ---
Subjective General Note Date: 2016 Admission Date: 03/23/2017 Hospital Day: 4 PCP: Dr. Jerry Advanced Directive: No CODE In Patient Acute Care Room: 205 62-year-old white female with a significant past medical history of recurrent pneumonia, hypercholesterolemia, hypertension, chronic pain, fibromyalgia, depression, migraine headache, polymyositis, who presented to [facility] emergency department on the day of admission with the above chief complaint. [facility] ER evaluation was consistent with recurrent right lower lobe pneumonia. Secondary to the above, the patient was admitted by Mikey Perez M.D. for further evaluation and treatment. Subjective: Patient reports that she's felt better. Eating well. He cannot sleep still having cough. Reports of wheeze. Patient request Discharge home Physical Exam Vital Signs / I&Os Vital Signs Date Time Temp Pulse Resp B/P Pulse O2 O2 Flow FiO2 Ox Delivery Rate 03/27 0320 98.2 87 22 148/86 93 Nasal 3.0 Cannula 03/27 0247 3.0 03/26 2234 98.4 87 18 125/59 95 Nasal 3.0 Cannula 03/26 2022 86 136/62 05/ 1935 99.7 87 18 114/67 96 Nasal 3.0 Cannula 03/26 1809 91 05/ 1805 91 20 137/66 05/08 1420 99.1 91 18 130/54 95 Nasal 3.0 Cannula 03/26 1226 3.0 03/26 1039 98.4 86 20 134/70 93 Nasal 2.0 Cannula 03/26 0954 2.0 03/26 0952 3.0 03/26 0828 3.0 03/26 0825 94 03/26 0753 3.0 I&O 03/26 0800 /08 1600 03/27 0000 Intake Total 934 1124 480 Output Total 1900 1100 1000 Balance -966 24 -520 General Appearance Oriented X3, Cooperative HEENT EOMI Lungs Rales, rhonchi, right lower lobe wheeze in the upper lobe. Cardiovascular Regular rate and rhythm, Normal S1 and S2 Extremities No tenderness Neurological No lateralizing signs LAB Results Laboratory Tests 03/27 05 Chemistry Plasma Sodium (136 - 145 mmol/L) 141 Plasma Potassium (3.5 - 5.1 mmol/L) 3.5 Plasma Chloride (98 - 107 mmol/L) 103 CO2 (Enzymatic) (21 - 32 mmol/L) 28 BUN (7 - 18 mg/dL) 9 Creatinine (0.6 - 1.3 mg/dL) 1.1 Est GFR ( Amer) (mL/min) >60 Est GFR (Non-Af Amer) (mL/min) 53.32 Glucose (70 - 110 mg/dL) 95 Plasma Calcium (8.5 - 10.1 mg/dL) 8.8 Hematology WBC (4.5 - 11.5 K/uL) 11.0 RBC (4.00 - 5.20 M/uL) 3.15 Hgb (12.0 - 16.0 gm/dL) 9.2 Hct (36.0 - 46.0 %) 27.8 MCV (80 - 100 fL) 88 MCH (26 - 34 pg) 29 RDW (11.6 - 14.8 %) 13.6 Plt Count, EDTA (150 - 400 K/uL) 289 PUBS MCHC (31 - 37 g/dL) 33 Assessment and Plan Problem List 1. Pneumonia Status Acute Onset Date Unknown Plan Discharged home on oral antibiotics , O2 therapy Recommending to see pulmonology for follow-up 2. UTI (urinary tract infection) Plan Home on antibiotics. 3. Hypertension Status Chronic Onset Date Unknown Plan Well-maintained blood blood pressure. Continue with the home regimen 4. Anemia Status Acute Onset Date Unknown Plan Home on 325 mg, ferrous sulfate daily 5. Fibromyalgia Status Chronic Onset Date Unknown Plan Seen with the palpation regimen for pain control. Current status: Fair, stable Anticipated discharge date: Anticipated discharge today. Anticipated discharge placement: Home with O2; [facility] emergency department Patient care time: 35 minutes of time spent in chart review, patient interview, physical exam, CPOE, and care documentation. Visit to patient today: 1 Complexity of care: Mild to moderate Initial patient evaluation: Emergency department consultation 6. Hypoxia Plan To discharge home on oxygen therapy. Keep sats above 92%. E&M Codes Rounding: Inpt-Moderate/[id number] Discharge: Inpt >30 min spent/[id number]
--- NOTE | 2017-03-27 07:18 | Progress Note ---
Subjective General Note Date: 2016 Admission Date: 03/23/2017 Hospital Day: 4 PCP: Dr. Jerry Advanced Directive: No CODE In Patient Acute Care Room: 205 62-year-old white female with a significant past medical history of recurrent pneumonia, hypercholesterolemia, hypertension, chronic pain, fibromyalgia, depression, migraine headache, polymyositis, who presented to [facility] emergency department on the day of admission with the above chief complaint. [facility] ER evaluation was consistent with recurrent right lower lobe pneumonia. Secondary to the above, the patient was admitted by Mikey Perez M.D. for further evaluation and treatment. Subjective: Patient reports that she's felt better. Eating well. He cannot sleep still having cough. Reports of wheeze. Patient request Discharge home Physical Exam Vital Signs / I&Os Vital Signs Date Time Temp Pulse Resp B/P Pulse O2 O2 Flow FiO2 Ox Delivery Rate 03/27 0320 98.2 87 22 148/86 93 Nasal 3.0 Cannula 03/27 0247 3.0 03/26 2234 98.4 87 18 125/59 95 Nasal 3.0 Cannula 03/26 2022 86 136/62 05/ 1935 99.7 87 18 114/67 96 Nasal 3.0 Cannula 03/26 1809 91 05/ 1805 91 20 137/66 05/08 1420 99.1 91 18 130/54 95 Nasal 3.0 Cannula 03/26 1226 3.0 03/26 1039 98.4 86 20 134/70 93 Nasal 2.0 Cannula 03/26 0954 2.0 03/26 0952 3.0 03/26 0828 3.0 03/26 0825 94 03/26 0753 3.0 I&O 03/26 0800 /08 1600 03/27 0000 Intake Total 934 1124 480 Output Total 1900 1100 1000 Balance -966 24 -520 General Appearance Oriented X3, Cooperative HEENT EOMI Lungs Rales, rhonchi, right lower lobe wheeze in the upper lobe. Cardiovascular Regular rate and rhythm, Normal S1 and S2 Extremities No tenderness Neurological No lateralizing signs LAB Results Laboratory Tests 03/27 05 Chemistry Plasma Sodium (136 - 145 mmol/L) 141 Plasma Potassium (3.5 - 5.1 mmol/L) 3.5 Plasma Chloride (98 - 107 mmol/L) 103 CO2 (Enzymatic) (21 - 32 mmol/L) 28 BUN (7 - 18 mg/dL) 9 Creatinine (0.6 - 1.3 mg/dL) 1.1 Est GFR ( Amer) (mL/min) >60 Est GFR (Non-Af Amer) (mL/min) 53.32 Glucose (70 - 110 mg/dL) 95 Plasma Calcium (8.5 - 10.1 mg/dL) 8.8 Hematology WBC (4.5 - 11.5 K/uL) 11.0 RBC (4.00 - 5.20 M/uL) 3.15 Hgb (12.0 - 16.0 gm/dL) 9.2 Hct (36.0 - 46.0 %) 27.8 MCV (80 - 100 fL) 88 MCH (26 - 34 pg) 29 RDW (11.6 - 14.8 %) 13.6 Plt Count, EDTA (150 - 400 K/uL) 289 PUBS MCHC (31 - 37 g/dL) 33 Assessment and Plan Problem List 1. Pneumonia Status Acute Onset Date Unknown Plan Discharged home on oral antibiotics , O2 therapy Recommending to see pulmonology for follow-up 2. UTI (urinary tract infection) Plan Home on antibiotics. 3. Hypertension Status Chronic Onset Date Unknown Plan Well-maintained blood blood pressure. Continue with the home regimen 4. Anemia Status Acute Onset Date Unknown Plan Home on 325 mg, ferrous sulfate daily 5. Fibromyalgia Status Chronic Onset Date Unknown Plan Seen with the palpation regimen for pain control. Current status: Fair, stable Anticipated discharge date: Anticipated discharge today. Anticipated discharge placement: Home with O2; [facility], [place] Patient care time: 35 minutes of time spent in chart review, patient interview, physical exam, CPOE, and care documentation. Visit to patient today: 1 Complexity of care: Mild to moderate Initial patient evaluation: Emergency department consultation 6. Hypoxia Plan To discharge home on oxygen therapy. Keep sats above 92%. E&M Codes Rounding: Inpt-Moderate/12488 Discharge: Inpt >30 min spent/04121
[2017-03-27 07:30] VITALS: BP 139/75
[2017-03-27 11:37] VITALS: BP 140/63
[2017-03-27] MEDS ORDERED: CEFDINIR300 MG PO (12:09)
[2017-03-27] MEDS ORDERED: O2 (12:12)
--- NOTE | 2017-03-27 12:19 | Provider's Discharge Care Plan ---
Problem, Goal, Plan Problem List 1. Pneumonia Goals: Diagnostic testing, Therapeutic intervention Instructions: Follow up as needed, Take meds as directed 2. Anemia Goals: Diagnostic testing, Therapeutic intervention Instructions: continue with the 325 mg ferrous sulfate taken twice daily, continue for 30 days 3. Hypertension Goals: Therapeutic intervention Instructions: Follow up as directed, Avoid processed foods 4. Hyperlipidemia Goals: Screening Instructions: Follow up as directed 5. Alkaline phosphatase elevation Goals: Diagnostic testing, repeat labs, CMP in the next 4-6 weeks Instructions: Follow up as directed, repeat labs 6. Hypoxia Goals: Improved health/wellness, discharged home on oxygen therapy Instructions: Follow up as directed, home on oxygen therapy 7. Fibromyalgia Goals: Improve disease control Instructions: Follow up as directed, Increase activity level 8. UTI (urinary tract infection) Goals: Diagnostic testing, Therapeutic intervention Instructions: complete the course of antibiotics.
--- NOTE | 2017-03-27 12:34 | Discharge Summary ---
Discharge Summary Report Admit Date 03/23/17 Discharge Date 03/27/17 Admission Diagnosis 1. Pneumonia. 2. Urinary tract infection. 3. Hypertension. 4. Hyperlipidemia. 5. Anemia. 6. Alkaline phosphatase elevation. 7. Discharge Diagnosis 1. Pneumonia. 2. Urinary tract infection. 3. Hypertension. 4. Hyperlipidemia. 5. Anemia. 6. Alkaline phosphatase elevation. 7. Hypoxia 8. Fibromyalgia Brief History See HPI dated 03/23/2017. In brief, is a 62-year-old male with a recurrent pneumonia, hypercholesterolemia, hypertension, chronic pain, depression, migraine headaches , polymyositis, who presented to the [facility] ED with cough, shortness of breath. Patient was found to have a lower lobe pneumonia. Patient was admitted under acute care. Hospital Course 62-year-old female that was admitted for a lower lobe pneumonia. Patient was started on IV antibiotics and IV fluids. She also had a requirement for oxygen. Patient was up to 5 L O2 to keep her sats above 92%. Patient was scheduled with General surgery for bronchoscopy poor. This was done on day 2 of her hospitalization. During the bronchoscopy. It was observed that the tissue in the lower lobe was red and hyperemic. However, there is no sign of an obstructed pneumonia. Patient had chronic pain during her hospitalization. Patient on the a.m. of day 3 developed right pleural chest pain. Rule out for pulmonary embolus was done through CT angiogram. The CT angiogram did not show a pulmonary embolus. However, it did show that there is improvement overall in her pneumonia that she was admitted with. There was signs of new infiltrates in the upper lobe. This was followed by 2 additional days of recovery. Patient maintain her saturations above 92% on 2-5 L oxygen. Patient continue with her antibiotics. Patient was able to eat, walk, ambulate without distress. Patient was discharged home on home O2 2-4 L nasal cannula. Also, patient was discharged home on cefdinir 300 mg twice a day. Patient was also found to be anemic during her hospitalization. Iron studies showed iron deficiency anemia. Patient was started on 325 mg, ferrous sulfate daily. Alcohol phosphorus remained elevated during her hospitalization, but trended downward with general improvement in her. In addition. Early ultrasound of gallbladder was unremarkable for cholecystitis. Patient has recommendations to follow-up with pulmonary medicine when available. Also, her primary care provider as soon as available. General Appearance Oriented X3, Cooperative HEENT EOMI Lungs rhonchi in the right lower lobe, slight wheeze in the upper lobe. Cardiovascular Normal S1, Normal S2, No murmurs Abdomen Soft, No tenderness Neurological Normal tone Lab/Imaging Laboratory Tests 03/27 0520 Chemistry Plasma Sodium (136 - 145 mmol/L) 141 Plasma Potassium (3.5 - 5.1 mmol/L) 3.5 Plasma Chloride (98 - 107 mmol/L) 103 CO2 (Enzymatic) (21 - 32 mmol/L) 28 BUN (7 - 18 mg/dL) 9 Creatinine (0.6 - 1.3 mg/dL) 1.1 Est GFR ( Amer) (mL/min) >60 Est GFR (Non-Af Amer) (mL/min) 53.32 Glucose (70 - 110 mg/dL) 95 Plasma Calcium (8.5 - 10.1 mg/dL) 8.8 Hematology WBC (4.5 - 11.5 K/uL) 11.0 RBC (4.00 - 5.20 M/uL) 3.15 Hgb (12.0 - 16.0 gm/dL) 9.2 Hct (36.0 - 46.0 %) 27.8 MCV (80 - 100 fL) 88 MCH (26 - 34 pg) 29 RDW (11.6 - 14.8 %) 13.6 Plt Count, EDTA (150 - 400 K/uL) 289 PUBS MCHC (31 - 37 g/dL) 33 CT angiogram 03/24/2017. 1. No pulmonary embolus. 2. Fairly extensive right lower lobe and right middle lobe consolidations. Differential diagnosis includes infectious pneumonia, postobstructive pneumonia, less likely aspiration. Neoplasm is not excluded. Follow-up chest x-ray following treatment in 3-[address] may be required if findings persist. 3. There is fairly extensive reactive adenopathy from the hilar and subcarinal regions to the supraclavicular region. 4. Mild cardiomegaly. 5. 8 mm anterior right upper lobe lung nodule, possibly post infectious. Follow-up chest CT in 3 months recommended. 6. Discussed with Dr. Durant in the emergency room. CT angiogram 03/25/2017 IMPRESSION: 1. No pulmonary embolus or pneumothorax. 2. Interval improvement in right lower lobe consolidation. 3. Interval development of patchy alveolitis in the right upper lobe, and small consolidation in the posterior left lower lobe. 4. Persistent adenopathy. Discharge Instructions/Meds Patient should follow up consistently with primary care provider. Also, pulmonology referral is imperative. Patient should see a engineering manager when the appointment is first available. Slip Filler could look overall details of both hospitalizations and review the findings. Patient needs an outpatient CT scan proximally 6 months from the one that was done inpatient. THis however, can be reviewed by pulmonology. She'll need to go home on oxygen therapy. Patient will also need to have pain control and this can be delivered through her primary care provider. She will continue with the home medication course, which includes lisinopril 10 mg by mouth twice per day, 2. Methadone 30 mg by mouth every morning, 20 mg by mouth 3 times a day, Coreg 6.25 mg by mouth twice per day, Cardura 1 mg by mouth before bedtime, Crestor 40 mg by mouth daily., Fluoxetine 40 mg by mouth daily, Norvasc 10 mg by mouth daily, Calan SR 180 mg by mouth daily, tizanidine 4 mg by mouth twice per day, Zofran 4 mg tab every 4 hours as necessary for nausea., Sumatriptan 50 mg by mouth as necessary for headaches. In addition, patient will have 5 additional days of Cefdinir by mouth intake and twice per day. She should return to the emergency department or urgent care clinic with respiratory distress, shortness of breath, intractable dizziness, nausea, vomiting, or other emergent concern. Greater than 30 minutes was needed to prepare the discharge. E&M Codes Discharge: Inpt >30 min spent/[id number]
== END 2017-03-27 13:49 | disposition home or self-care (01) | DRG 194 ==
LOC: ED SRH 14:43 → TRANS SRH 19:24 → ACUTE2 SRH 20:15
PROVIDERS: Specialist; ADMIT Internal Medicine
PROC: 0BB68ZX Excision of Right Lower Lobe Bronchus, Via Natural or Artificial Opening Endoscopic, Diagnostic (ICD-10-PCS; principal; 2017-03-24 14:00)
PROC: 0BB58ZX Excision of Right Middle Lobe Bronchus, Via Natural or Artificial Opening Endoscopic, Diagnostic (ICD-10-PCS; principal; 2017-03-24 14:00)
DX: J18.9 Pneumonia, unspecified organism (principal); N39.0 Urinary tract infection, site not specified; R09.02 Hypoxemia; M79.7 Fibromyalgia; I10 Essential (primary) hypertension; E78.5 Hyperlipidemia, unspecified; R74.8 Abnormal levels of other serum enzymes; D50.9 Iron deficiency anemia, unspecified; Z87.891 Personal history of nicotine dependence
CPT/HCPCS: 50004; 60001; 70002; 80102; 81107; 83125; 83475; 85567; 90004; 90047; 90065; 90074; 90100; 90469; 90616; 91295; 91320; 91504; 91505; 91556; 92180; 92235; 92530; 92610; 92668; 92670; 93004; 94001; 94060; 95059

== ENCOUNTER 2017-05-24 14:23 | Outpatient (CLI) | payer OTHER ==
[~2017-05-24 14:23] MED LIST: AMLODIPINE BESY10 MG PO; CARDURA1 MG PO; CARVEDILOL6.25 MG PO; CEFDINIR300 MG PO; CRESTOR40 MG PO; FLUOXETINE20 MG PO; IMITREX50 MG; METHADONE HCL10 MG PO; O2; ONDANSETRON ODT4 MG PO; TIZANIDINE HCL4 MG PO; VERAPAMIL HCL180 M4 PO; ZESTRIL10 MG PO; ZESTRIL2.5 MG PO
--- NOTE | 2017-05-24 15:37 | DIAGNOSTIC IMAGING REPORT ---
PROCEDURE: CT THORAX WITH CONTRAST INDICATION: Follow up pneumonia. TECHNIQUE: 75 ml of Isovue 300 was injected intravenously and axial images were obtained of the chest with coronal and sagittal reformations. COMPARISON: CT pulmonary angiogram was 03/25/2017 and 03/23/2017. FINDINGS: Resolved right lower and middle lobe consolidation with minor scarring. Markedly improved right upper lobe infiltrate. Stable 7 mm right upper lobe nodule. Normal airways. Resolved small right pleural effusion and right hilar adenopathy. Normal thoracic aorta. Coronary atherosclerosis. Heart size is normal. No pericardial effusion. Small thyroid nodules. Mild intrahepatic ductal dilation. Left renal cyst. Mild chronic T12 compression fracture. IMPRESSION: 1. Markedly improved right upper lobe infiltrate 2. Resolved right lower and middle lobe can solid aeration with minor scarring. Small left pleural effusion has also resolved. 3. Stable 7 mm right upper lobe nodule 4. Mild intrahepatic ductal dilation. Correlate clinically
== END 2017-05-24 23:00 | disposition home or self-care (01) ==
LOC: CT SRH 14:23
DX: J18.1 Lobar pneumonia, unspecified organism (principal); J90 Pleural effusion, not elsewhere classified